=== PATIENT | female | born 1930 | race African-American/Black ===

== ENCOUNTER 2016-08-14 22:19 | Inpatient (IN) | payer OTHER ==
[~2016-08-14] VITALS: Ht 180.3 cm; Wt 82.2 kg
--- NOTE | ~2016-08-14 | EKG ---
[address] [place] [employer] [address] ELECTROCARDIOGRAM REPORT Name: EDUARDO CAVAZOS Room #: 313-P ADM IN M.R.#: [id number] Admission: 08/15/16 Attend Phys: Akin Dacosta MD Discharge: Date of : 30 Report #: [id number] THIS REPORT FOR: //name// [facility] ED Test Date: 2016-08-14 Test Time: 22:37:21 Pat Name: EDUARDO CAVAZOS Department: Room: [facility] Gender: F Prototyper: MZOOK : 1930 Requested By: Unique Song Order Number: [id number] MD: Kev Montoya Measurements Intervals [place] Rate: 107 P: 49 [place]: 169 QRS: 24 QRSD: 91 T: -1 QT: 359 QTc: 479 Interpretive Statements Sinus tachycardia frequent premature ventricular and supraventricular complexes Probable left atrial enlargement Nonspecific ST segment abnormality No previous ECG available for comparison Electronically Signed On 08-15-2016 7:43:00 LABEL SEWER by Kev Montoya [email or web address] <ELECTRONICALLY SIGNED> By: Kev Montoya MD, [facility] 08/15/16 0743 36 36 Kev Montoya MD, FACC /EPI
--- NOTE | ~2016-08-14 | EKG ---
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: KLAUS : 1930 Requested By: Ever Clinton Order Number: [id number] MD: Kev Montoya Measurements Intervals [place] Rate: 149 P: 55 [place]: 65 QRS: 33 QRSD: 71 T: -86 QT: 272 QTc: 428 Interpretive Statements Supraventricular tachycardia with frequent atrial premature complexes Probable anterior infarct, age indeterminate Artifact in lead(s) II,III,aVR,aVL,aVF,V2 N[address] and T-wave abnormality No previous ECG available for comparison Electronically Signed On 08-15-2016 7:44:34 BENCH ASSEMBLER by Kev Montoya [email or web address] <ELECTRONICALLY SIGNED> By: Kev Montoya MD, FACC 08/15/16 0744 0154 0154 Kev Montoya MD, [facility] /EPI
--- NOTE | ~2016-08-14 | 2DMMODE ---
[facility] [place] [address] 2 D/M-MODE ECHOCARDIOGRAM Name: EDUARDO CAVAZOS Room #: 313-P [facility]#: [id number] Admission: 08/15/16 Attend Phys: Anson Stein MD Discharge: Date of : 30 Date of Service: 08/15/16811 Report #: [id number] THIS REPORT FOR: //name// Transthoracic Echocardiography Ordering physician: Nicole Alvarado Referring physician: Aamir Harmon Theresa L. Dining Room Manager: Letty Villarreal Indications/History: New onset Afib. Hx: HTN, HLP BP: 164 / HR: 117bpm Height: 71in Weight: 175.6lb 51 Study data: M-mode, complete 2D, complete spectral Doppler, and color Doppler. Location: Bedside. Routine. Image quality was adequate. The study was technically limited due to poor patient compliance, restricted patient mobility and arrhythmia. 2D measurements Normal Normal LVID ED 42.7mm 36-57 IVS ED 12.9mm 6-11 LVID ES 28.2mm 23-40 LVPW ED 10.9mm 6-11 LA volume 26ml/m2 16-28 AoRoot diam 30mm 21-37 index ED LVOT diameter 20mm 18-23 Findings: Left ventricle: The cavity size was normal. Wall thickness was increased in a pattern of mild LVH. Systolic function was normal. The estimated ejection fraction was in the range of 60% to 65%. Wall motion was normal. Right ventricle: The cavity size was normal. Systolic function was normal. Right atrium: The atrium was normal in size. Left atrium: The atrium was mildly dilated. Volume index: 26ml/m2 (S). Aortic valve: Moderately calcified leaflets. 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 Difficult [facility] [place] [address] [place] [address] 2 D/M-MODE ECHOCARDIOGRAM Name: EDUARDO CAVAZOS Room #: 313-P [facility] IN [place]#: [id number] Admission: 08/15/16 Attend Phys: Anson Stein MD Discharge: Date of : 30 Date of Service: 08/15/16 0812 Report #: [id number] to assess due to arrhythmia. Mean peak velocity of 3.4m/s with an average peak gradient of 50mmHg and an average mean of 37mmHg. No regurgitation. Mitral valve: Mildly calcified annulus. Moderately calcified leaflets . Doppler: There was no evidence for stenosis. No regurgitation. Peak E-wave velocity: 111.1cm/s. Peak gradient: 4.9mm Hg (D). Peak A-wave velocity: 156.3cm/s. Tricuspid valve: Structurally normal valve. Doppler: There was no evidence for stenosis. Mild regurgitation. Regurgitant peak velocity: 309cm/s. Peak RV-RA gradient: 38mm Hg (S). Pulmonic valve: Poorly visualized. Doppler: There was no evidence for stenosis. Mild regurgitation. Pericardium: There was no pericardial effusion. Aorta: Aortic root: The aortic root was normal in size. Pulmonary artery: Systolic pressure was estimated to be 43mm Hg. Diastolic function: Doppler parameters are consistent with abnormal left ventricular relaxation (grade 1 diastolic dysfunction). Systemic veins: Inferior vena cava: The vessel was normal in size; the respirophasic diameter changes were in the normal range (= 50%). Conclusions 1. Left ventricle: Systolic function was normal. The estimated ejection fraction was in the range of 60% to 65%. Wall motion was normal. Doppler parameters are consistent with abnormal left ventricular relaxation (grade 1 diastolic dysfunction). 2. Aortic valve: Moderately calcified leaflets. 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 Difficult to assess due to arrhythmia. Mean peak velocity of 3.4m/s with an average peak gradient of 50mmHg and an average mean of 37mmHg. No regurgitation. 3. Mitral valve: Mildly calcified annulus. Moderately calcified leaflets . There was no evidence for stenosis. No regurgitation. [facility] [place] [address] [place] [address] 2 D/M-MODE ECHOCARDIOGRAM Name: EDUARDO CAVAZOS Room #: 313-P [facility] IN ..#: [id number] Admission: 08/15/16 Attend Phys: Anson Stein MD Discharge: Date of : 30 Date of Service: 08/15/16811 Report #: [id number] 4. Pericardium, extracardiac: There was no pericardial effusion. <ELECTRONICALLY SIGNED> By: Kev Montoya MD, [facility] 08/15/16908 1 8 Kev Montoya MD, [facility] /federica
[2016-08-14 22:20] VITALS: BP 149/65
[2016-08-14 22:43] LABS: HEMATOCRIT 40.3 % (37.0-47.0); HEMOGLOBIN 13.1 gm/dL (12.0-15.0); MCH 25.8 pg (26.0-34.0); MCHC 32.4 % (28.0-37.0); MCV 79.8 fL (80.0-100.0); PLATELET COUNT 234 thou/uL (150-400); RBC 5.05 mil/uL (4.20-5.00); RDW 15.7 % (10.5-14.5); WBC 16.9 thou/uL (4.0-11.0)
[2016-08-14 22:46] LABS: MANUAL DIFF YES
[2016-08-14 22:49] LABS: ANION GAP 10 mmol/L (7-16); BUN 47 mg/dL (7-18); CALCIUM 9.1 mg/dL (8.5-10.1); CHLORIDE 100 mmol/L (98-107); CO2 28 mmol/L (21-32); CREATININE 2.5 mg/dL (0.6-1.3); GLUCOSE 118 mg/dL (70-99); POTASSIUM 4.3 mmol/L (3.5-5.1); SODIUM 138 mmol/L (136-145)
[2016-08-14] MEDS ORDERED: NORVASC2.5 MG PO (22:59)
[2016-08-14] MEDS ORDERED: NORVASC5 MG PO (23:00)
[2016-08-14] MEDS ORDERED: ASPIR 8181 MG PO (23:01)
[2016-08-14] MEDS ORDERED: LIPITOR 20 MG T20 M1 PO (23:02)
[2016-08-14 23:03] LABS: ALKALINE PHOSPHATASE 70 U/L (46-116); NT-PRO BRAIN NAT PEPTIDE 5327 pg/mL (<300); SGOT 17 U/L (15-37); SGPT 15 U/L (30-65); TOTAL BILIRUBIN 0.5 mg/dL (<0.1-1.0); TOTAL PROTEIN 7.1 g/dL (6.4-8.2); TROPONIN-I < 0.04 ng/mL (<0.04-0.07)
[2016-08-14] MEDS ORDERED: CLONIDINE HCL0.3 M3 PO (23:03)
[2016-08-14] MEDS ORDERED: ARICEPT 5 MG TAB5 MG PO (23:03)
[2016-08-14] MEDS ORDERED: FUROSEMIDE 40 M40 M1 PO (23:04)
[2016-08-14] MEDS ORDERED: COZAAR 50 MG TA50 M2 PO (23:04)
[2016-08-14] MEDS ORDERED: POTASSIUM CHLO20 ME2 PO (23:05)
[2016-08-14] MEDS ORDERED: NAMENDA 10 MG T10 MG PO (23:05)
[2016-08-14] MEDS ORDERED: MAPAP325 MG PO (23:06)
[2016-08-14] MEDS ORDERED: TRAZODONE HCL50 MG PO (23:07)
[2016-08-14 23:12] LABS: URINE BLOOD NEGATIVE (Negative); URINE COLOR YELLOW; URINE GLUCOSE-RANDOM* NEGATIVE (Negative); URINE KETONES TRACE (Negative); URINE NITRITE NEGATIVE (Negative); URINE PROTEIN (DIPSTICK) TRACE (Negative); URINE UROBILINOGEN 0.2 E.U./dl (0.2-1.0)
[2016-08-14 23:15] LABS: ICTOTEST (BILI CONFIRMATORY) Negative (Negative); URINE BILIRUBIN NEGATIVE (Negative)
[2016-08-14 23:23] LABS: BACTERIA >30 Many /HPF (None Seen); CASTS None Seen /LPF (None Seen); CRYSTALS None Seen /LPF (None Seen); SQUAMOUS None Seen /LPF (0-3); URINE RBC None Seen /HPF (0-2); URINE WBC 6-15 Few /HPF (0-5)
[2016-08-14 23:24] LABS: HYALINE CASTS 0-3 Few /LPF (None Seen)
[2016-08-14 23:30] LABS: ANISOCYTOSIS 1+; POLYCHROMASIA 1+; TOTAL CELL COUNT 100
[2016-08-14 23:31] LABS: LARGE PLATELETS FEW
[2016-08-15 02:20] VITALS: BP 153/122; BP 159/58
[2016-08-15 04:11] VITALS: BP 155/84
[2016-08-15 06:34] LABS: HEMATOCRIT 42.8 % (37.0-47.0); HEMOGLOBIN 13.3 gm/dL (12.0-15.0); MCH 25.6 pg (26.0-34.0); MCHC 31.1 % (28.0-37.0); MCV 82.1 fL (80.0-100.0); RBC 5.22 mil/uL (4.20-5.00); RDW 15.8 % (10.5-14.5); WBC 25.5 thou/uL (4.0-11.0)
[2016-08-15 06:56] VITALS: BP 164/51
[2016-08-15 07:01] LABS: ALBUMIN 2.7 g/dL (3.4-5.0); CALCIUM 8.6 mg/dL (8.5-10.1); CREATININE 1.8 mg/dL (0.6-1.3); POTASSIUM 3.9 mmol/L (3.5-5.1); TOTAL BILIRUBIN 0.5 mg/dL (<0.1-1.0); TOTAL PROTEIN 6.1 g/dL (6.4-8.2)
[2016-08-15 08:40] VITALS: BP 174/53
[2016-08-15 08:40] LABS: TROPONIN-I 0.05 ng/mL (<0.04-0.07)
[2016-08-15 12:55] VITALS: BP 151/69
[2016-08-15 17:15] LABS: TSH 0.63 uIU/mL (0.450-4.500)
[2016-08-15 20:00] VITALS: BP 159/92
[2016-08-16 04:00] VITALS: BP 150/107
[2016-08-16 07:29] VITALS: BP 159/67
[2016-08-16 07:53] VITALS: BP 162/68
[2016-08-16 10:22] LABS: HEMATOCRIT 39.2 % (37.0-47.0); HEMOGLOBIN 12.5 gm/dL (12.0-15.0); MCH 25.7 pg (26.0-34.0); MCHC 31.9 % (28.0-37.0); MCV 80.5 fL (80.0-100.0); PLATELET COUNT 266 thou/uL (150-400); RBC 4.87 mil/uL (4.20-5.00); RDW 15.9 % (10.5-14.5); WBC 22.4 thou/uL (4.0-11.0)
[2016-08-16 10:31] LABS: MANUAL DIFF YES
[2016-08-16 10:33] LABS: CALCIUM 8.8 mg/dL (8.5-10.1); CREATININE 1.3 mg/dL (0.6-1.3); POTASSIUM 3.9 mmol/L (3.5-5.1)
[2016-08-16 10:48] LABS: ABSOLUTE NEUTROPHILS 18.6 thou/uL (1.4-8.2); PLATELET ESTIMATE NORMAL; TOTAL CELL COUNT 100
[2016-08-16 11:31] VITALS: BP 157/73
[2016-08-16 21:08] VITALS: BP 162/117
[2016-08-16 23:52] VITALS: BP 167/82
[2016-08-17 03:50] VITALS: BP 186/74
[2016-08-17 07:23] VITALS: BP 166/86
[2016-08-17 10:54] VITALS: BP 167/67
[2016-08-17 12:24] LABS: CALCIUM 8.4 mg/dL (8.5-10.1); POTASSIUM 3.4 mmol/L (3.5-5.1)
[2016-08-17 13:19] LABS: HEMATOCRIT 39.3 % (37.0-47.0); HEMOGLOBIN 12.6 gm/dL (12.0-15.0); MCH 25.4 pg (26.0-34.0); MCV 79.5 fL (80.0-100.0); PLATELET COUNT 277 thou/uL (150-400); RBC 4.95 mil/uL (4.20-5.00); RDW 15.9 % (10.5-14.5); WBC 19.6 thou/uL (4.0-11.0)
[2016-08-17 13:20] LABS: MANUAL DIFF YES
[2016-08-17 14:05] LABS: ABSOLUTE NEUTROPHILS 17.2 thou/uL (1.4-8.2); TOTAL CELL COUNT 100
[2016-08-17 14:06] LABS: ANISOCYTOSIS 1+; POIKILOCYTOSIS SLIGHT; POLYCHROMASIA OCCASIONAL
[2016-08-17 15:30] VITALS: BP 166/78; BP 196/85
[2016-08-17 21:00] VITALS: BP 139/103
[2016-08-18 00:20] VITALS: BP 180/96
[2016-08-18 04:40] VITALS: BP 179/94
[2016-08-18 08:00] VITALS: BP 175/62
[2016-08-18 11:38] VITALS: BP 173/77
[2016-08-18 15:03] VITALS: BP 101/56
[2016-08-18 19:47] VITALS: BP 137/72
[2016-08-19 04:02] VITALS: BP 114/58
[2016-08-19 05:28] LABS: HEMATOCRIT 36.7 % (37.0-47.0); HEMOGLOBIN 11.7 gm/dL (12.0-15.0); MCH 26.1 pg (26.0-34.0); MCHC 32.1 % (28.0-37.0); MCV 81.6 fL (80.0-100.0); RBC 4.49 mil/uL (4.20-5.00); RDW 15.6 % (10.5-14.5); WBC 9.3 thou/uL (4.0-11.0)
[2016-08-19 05:38] LABS: CALCIUM 8.4 mg/dL (8.5-10.1); CREATININE 1.6 mg/dL (0.6-1.3)
[2016-08-19 05:51] LABS: POTASSIUM 2.9 mmol/L (3.5-5.1)
[2016-08-19 08:00] VITALS: BP 115/53
[2016-08-19 12:00] VITALS: BP 111/41
[2016-08-19 16:00] VITALS: BP 133/48
[2016-08-19 20:20] VITALS: BP 133/50
[2016-08-20 03:40] VITALS: BP 134/72
[2016-08-20] MEDS ORDERED: KEFLEX500 MG PO (10:31)
[2016-08-20 10:48] VITALS: BP 119/51
[2016-08-20 10:57] LABS: CALCIUM 8.2 mg/dL (8.5-10.1); CREATININE 1.3 mg/dL (0.6-1.3); POTASSIUM 3.8 mmol/L (3.5-5.1)
[2016-08-20 13:00] VITALS: BP 140/56
[2016-08-20] MEDS ORDERED: CARDIZEM CD180 MG PO (15:03)
== END 2016-08-20 16:58 | DRG 682 ==
LOC: ER 22:19 → EROBS 08-15 01:49 → 3N 08-15 01:49
PROVIDERS: Family Medicine; Hospitalist; Nurse Practitioner; Nurse Practitioner Family
DX: I12.9 Hypertensive chronic kidney disease with stage 1 through stage 4 chronic kidney disease, or unspecified chronic kidney disease (principal); N17.0 Acute kidney failure with tubular necrosis; A04.7 Enterocolitis due to Clostridium difficile; N39.0 Urinary tract infection, site not specified; E86.0 Dehydration; E78.5 Hyperlipidemia, unspecified; N18.3 Chronic kidney disease, stage 3 (moderate); I35.0 Nonrheumatic aortic (valve) stenosis; I48.91 Unspecified atrial fibrillation; F03.90 Unspecified dementia, unspecified severity, without behavioral disturbance, psychotic disturbance, mood disturbance, and anxiety; Z91.81 History of falling; Z79.899 Other long term (current) drug therapy; Z79.82 Long term (current) use of aspirin; Z88.8 Allergy status to other drugs, medicaments and biological substances; Z88.6 Allergy status to analgesic agent; Z88.2 Allergy status to sulfonamides; Z91.041 Radiographic dye allergy status
CPT/HCPCS: 10096

== ENCOUNTER 2016-09-09 13:29 | Inpatient (IN) | payer OTHER ==
[~2016-09-09] VITALS: Ht 180.3 cm; Wt 83.9 kg
--- NOTE | ~2016-09-09 | S ---
[facility] [place] [place] [address] SURGICAL PATH RPT PROCEDURE Name: TRACY BENITEZ Room #: 428-P ADM IN M.R.#: [id number] Admission: 09/09/16 Date of : 30 Discharge: Report #: [id number] Path Case #: [id number] PATHOLOGY REPORT COLLECTION DATE: 09/26/2016 RECEIVED DATE: 09/26/2016 SUBMITTING PHYS: Dr. Hemal Burr OTHER PHYS: Dr. Teo Harmon SPECIMEN(S) RECEIVED: A.Colon mass - ascending colon B.L colon and rectum * * * * * * * * * * * * FINAL DIAGNOSIS: A. "Colon mass-ascending colon," biopsy: - Acute and chronic inflammation, ulceration, and granulation tissue. (see comment) B. "L colon and rectum," biopsy: - Colonic mucosa with chronic active colitis, ulceration, and reactive, hyperplastic, and regenerative changes; no dysplasia seen. COMMENT: Within specimen A, sections show fragments of connective tissue with acute and chronic inflammation, ulceration, and granulation tissue. Only a scant amount of viable glandular epithelium with reactive and regenerative changes is noted. Rare polarizable material is also seen. Properly controlled immunohistochemical stains are performed. (Block A1) AE1/AE3: scant residual epithelium CD117: stains rare scattered cells (likely mast cells) CD20: stains rare scattered cells PAX-5: stains rare scattered cells CD3: highlights occasional admixed T-cells CD5: stains occasional admixed T-cells, no B-cell co-expression CD10: highlights the granulocytes and stromal cells BCL-6: stains scattered cells BCL-2: stains scattered cells CD23: essentially non-reactive Cyclin D-1: lacks diffuse nuclear staining MUM-1: numerous subepithelial smaller cells (likely plasma cells) Ki-67: mildly increased scattered cells Overall, the findings suggest an inflammatory process. No convincing [facility] [address] [place] [address] SURGICAL PATH RPT PROCEDURE Name: TRACY BENITEZ Room #: 428-P ADM IN M.R.#: [id number] Admission: 09/09/16 Date of : 30 Discharge: Report #: [id number] Path Case #: [id number] epithelial dysplasia is identified and no malignancy is seen. Clinical and endoscopic correlation is required. Of note, this is a small portion of a larger lesion and may not be entirely counter sales representative. Specimen A is co-reviewed with Dr. Jovan Michaels. (CLW:; d/t: 10/01/16) PATHOLOGIST: Michelle Banegas M.D. REPORT ELECTRONICALLY SIGNED BY: Michelle Banegas M.D. DATE/TIME: 10/01/2016 21:26 * * * * * * * * * * * * GROSS PATHOLOGY: A. Received in formalin labeled "Tracy Benitez, ascending colon mass," are three segments of recinos soft tissue measuring 0.7 x 0.7 x 0.1 cm in aggregate dimensions and ranging from 0.3 to 0.4 cm in maximum dimension. The specimen is submitted entirely in cassette A1. B. Received in formalin labeled "Trayc Benitez, biopsy L colon and rectum, history of C. difficile," are nine segments of recions soft tissue measuring 1.4 x 1.3 x 0.2 cm in aggregate dimensions and ranging from 0.3 to 0.6 cm in maximum dimension. The specimen is submitted entirely in cassette B1. (CAA; 09/26/2016) CLINICAL HISTORY: Diarrhea, C. difficile INITIAL CPT CODE(S): A; 72452, 41836, 93480, 08006, 65735, 41192, 29867, 95868, 51322, 56750, 18330, 72187, 65369, 59146 B; 14856 Professional services performed by [employer] at [facility] [address] [place] [address] Technical services performed by [employer] at [address] [place] [address], [address], [place] [address]. [facility] [address] [place] [address] PHONE: [phone] DIRECTOR: Zia Rodriguez M.D. * * * END OF REPORT * * *
--- NOTE | ~2016-09-09 | P ---
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 Currently, there are considerations for fecal transplant for this patient and further evaluation is requested. PREOPERATIVE DIAGNOSIS: Clostridium difficile with recurrent diarrhea. POSTOPERATIVE DIAGNOSES: 1. Diffuse colitis, appears to be healing, nonspecific in appearance. 2. Sessile mass lesion, distal ascending colon. MEDICATIONS: Deep sedation with propofol per anesthesia. SPECIMEN: 1. Biopsies of sessile lesion, distal ascending colon. 2. Random biopsies of the left colon and rectum. ESTIMATED BLOOD LOSS: 5 mL. PROCEDURE: Colonoscopy to cecum with biopsy. FINDINGS: Prior to sedation, procedure was discussed with the patient. She indicates she understands and desire that we proceed. DESCRIPTION OF PROCEDURE: With the patient in left lateral decubitus position, digital examination was completed which revealed no abnormalities. Subsequently, the [employer] video colonoscope was introduced into the rectum, advanced under direct vision. Our initial intention was to complete a flexible sigmoidoscopy. However, it is noted on CT, there is evidence of a lipomatous lesion and possible intussusception in the proximal colon. The scope was advancing easily. All of the prep was limited, reasonable visibility obtained and without any difficulty, we were able to advance the scope actually all the way to the cecum. Upon slow withdrawal of the scope, the mucosa was inspected. Again, she did not have a colonoscopy prep and there were pools of liquidy stool throughout the colon. However, visibility was good enough to see that there was a mass lesion of at least 4 cm in the distal descending colon. It was bulging in the lumen and probably obscured about one-third of the lumen. This lesion had colonic mucosa over it. The mucosa over the lesion appeared jessica of the colon. It was palpated with a biopsy forceps and it was soft and friable. On CT, it was suggested this is a lipoma and endoscopically that would be the same impression. Biopsies were obtained; however, we may not be deep enough to [facility] [address] [place] [address] PROCEDURE REPORT Name: EDUARDO CAVAZOS Room #: 428-P DIS IN M.R.#: [id number] Admission: 09/09/16 Attend Phys: Teo Pena Discharge: 10/09/16 Date of : 30 Report #: [id number] give a complete diagnosis. As we withdrew the scope, it was noted that the mucosa throughout the entire colon was erythematous as well as could be seen within the limitations of prep. It was edematous as well. Extensive or deep ulcerations were not seen. It was friable. It had appearance of a healing colitis. Typical pseudomembranes were not seen. Multiple biopsies obtained in the left colon and the rectum. The scope was withdrawn in the rectum. Upon retroflexion, an ulcer raising from the anal canal was seen. This may be as a result of her fecal management system. The ulcer seen in the anal canal. It was about 1.5 cm as well as could be visualized. It was not bleeding. It had a benign appearance. Scope was withdrawn. The patient tolerated the procedure well. DISPOSITION: Unfortunately, the patient with recurrent significant C. diff colitis, which has been documented and treated by Dr. Ever Harris. Endoscopically, I did not see pseudomembranes, however, she has been treated for C. difficile colitis and findings are consistent with resolving colitis, but likely secondary to C. diff. We will follow up on biopsies obtained today. <ELECTRONICALLY SIGNED> By: Hemal Burr MD 10/10/16 0743 1337 1904 Hemal Burr MD /nt
--- NOTE | ~2016-09-09 | P ---
[facility] [place] [address] PROCEDURE REPORT Name: EDUARDO CAVAZOS Room #: 428-P [facility] IN M.R.#: [id number] Admission: 09/09/16 Attend Phys: Teo Pena Discharge: Date of : 30 Report #: [id number] THIS REPORT FOR: //name// Michael Cosby MD COPIES TO: , PROCEDURE PERFORMED: Upper Endoscopy DATE OF PROCEDURE: 10/07/2016 DICTATED BY: Michael Cosby MD REFERRING PHYSICIAN: ER PROVIDER USE ONLY SCOPE(S) USED: F Sn: 054- LOANER MEDICATIONS GIVEN: (See Anesthesiologist Report) INDICATIONS: Endoscopic placement of PEG tube EXTENT OF EXAMINATION: Second part of the duodenum DESCRIPTION OF PROCEDURE: Informed consent was obtained with the benefits, risks, and alternatives to upper GI endoscopy explained, including the risk of perforation, and the patient agreed to proceed. See anesthesiologist report for patients ASA Classification. Patient re-Examined; and no interval changes noted from preoperative History and Physical. No contraindications were noted on physical exam. After being placed on the table, patient identification was verified prior to the procedure. Anesthesia administered by Dr. Silverman. (See Anesthesiologist report) Assessment of sedation: Complications- None. Cardiovascular- Stable. Orientation- Sedated. The procedure was performed with the patient in the left lateral decubitus position. The instrument was inserted to the second part of the duodenum. Estimated blood loss for the procedure was 0 ml. The patient tolerated the procedure well. There were no complications. The heart rate was normal. The oxygen saturation and skin color were normal. Upon discharge from the endoscopy area, the patient will be recovered per established procedures and protocols. The esophagus was examined and no abnormalities were seen. The stomach was examined and no abnormalities were seen. The duodenum was examined and no abnormalities were seen. THERAPEUTIC PROCEDURE(S) PERFORMED: Feeding Tube Device: PEG, Location: body, Size: 20FR, Result: Success [facility] [address] [place] [address] PROCEDURE REPORT Name: EDUARDO CAVAZOS Room #: 428-P [facility] IN ..#: [id number] Admission: 09/09/16 Attend Phys: Teo Pena Discharge: Date of : 30 Report #: [id number] DISCHARGE INSTRUCTIONS: The patient was instructed to return to the hospital [facility] for ongoing care. OK to use PEG tube now for water and medications. Resume tube feeds in six hours. Consider adding an abdominal binder to prevent dislodging tube. <ELECTRONICALLY SIGNED> By: Michael Cosby MD 10/07/16 1645 1 1 Michael Cosby MD /si
--- NOTE | ~2016-09-09 | HC ---
[facility] [place] [place] [address] CONSULTATION Name: EDUARDO CAVAZOS Room #: 428-[facility] IN M.R.#: [id number] Admission: 09/09/16 Attend Phys: Teo Pena Discharge: Date of : 30 Report #: [id number] THIS REPORT FOR: //name// CC: Teo Harmon INFECTIOUS DISEASE CONSULTATION REASON FOR CONSULTATION: I was asked to evaluate concerning C. difficile colitis. HISTORY OF PRESENT ILLNESS: The patient is an 86-year-old retirement resident with advanced dementia who was hospitalized with C. difficile colitis. Her initial white count was over 30,000. She has had large volume diarrhea. Found also to have urinary tract infection, was placed on vancomycin and ceftriaxone. Ceftriaxone was discontinued today. Although her stools have lessened, her white count is down to 18,000. The patient was unable to give any further details. She was lethargic. She had mild diffuse abdominal tenderness. ALLERGIES: ROXIE INHIBITORS, MORPHINE, RED DYE, SULFA, DYAZIDE, ANGIOTENSIN RECEPTOR BLOCKERS, LOOP DIURETICS. PAST MEDICAL HISTORY: Dementia, hypertension, hyperlipidemia, recently hospitalized with urinary tract infection, atrial fibrillation, rapid ventricular response, having been discharged on 08/20/2016. FAMILY HISTORY: Noncontributory. SOCIAL HISTORY: Not available. REVIEW OF SYSTEMS: The patient has had no cough or sputum production. Unable to give any further details. PHYSICAL EXAMINATION: VITAL SIGNS: Afebrile and hemodynamically stable. GENERAL: Last stool was soft formed. HEENT: Unremarkable. She was lethargic. CHEST: Clear. HEART: Regular. ABDOMEN: Soft with diffuse tenderness. No guarding or rebound. EXTREMITIES: Unremarkable. LABORATORY STUDIES: Sodium 135, potassium 5, creatinine 1, bicarbonate at 24, Hemoglobin 11.9, white count 18.5, and platelet count 197,000. From September 10, the stool was positive for C. difficile by PCR. Her urinalysis on admission showed few wbcs, moderate bacteria and yeast. CT scan showed diffuse colonic wall thickening with no perforation. She had gallbladder distention. [address] [address] CONSULTATION Name: EDUARDO CAVAZOS Room #: 428-P ADM IN M.R.#: [id number] Admission: 09/09/16 Attend Phys: Teo Medina Becky Discharge: Date of : 30 Report #: [id number] IMPRESSION: An 86-year-old with Clostridium difficile colitis, which is slow to improve. Her stool volume, however, has slowed down and her white count has begun to improve. This should continue improvement as she comes off her other systemic antibiotics. PLAN: I would recommend continuing vancomycin enterally and metronidazole intravenously. We will follow up with a CBC differential along with chemistry and KUB. We will determine her length of therapy following these further studies. At this point in time, does not look like we are going to need fecal transplant, but this still remains a possibility. <ELECTRONICALLY SIGNED> By: Ever Harris MD 09/18/16 0934 1727 2049 Ever Harris MD /nt
--- NOTE | ~2016-09-09 | EKG ---
[place] [address] [place] [address] ELECTROCARDIOGRAM REPORT Name: EDUARDO CAVAZOS Room #: 428-P ADM IN M.R.#: [id number] Admission: 09/09/16 Attend Phys: Teo Pena Discharge: Date of : 30 Report #: [id number] THIS REPORT FOR: //name// [facility] ED Test Date: 2016-09-09 Test Time: 13:59:59 Pat Name: EDUARDO CAVAZOS Department: Room: 428 Gender: F Waste Recycler: Zack YANG : 1930 Requested By: Ever Clinton Order Number: [id number] MD: Kev Montoya Measurements Intervals [place] Rate: 85 P: 70 GA: 167 QRS: 12 QRSD: 104 T: 192 QT: 340 QTc: 405 Interpretive Statements Baseline artifact obscurs interpretation Possibe sinus with APC's Nonspecific ST and T wave abnormality No previous available for comparison Electronically Signed On 09-10-2016 8:59:35 BUSINESS OPERATIONS SPECIALIST by Kev Montoya [email or web address] <ELECTRONICALLY SIGNED> By: Kev Montoya MD, [facility] 09/10/16 0859 1359 1359 Kev Montoya MD, FACC /EPI
[~2016-09-09 13:29] MED LIST: ARICEPT 5 MG TAB5 MG PO; ASPIR 8181 MG PO; CARDIZEM CD180 MG PO; CLONIDINE HCL0.3 M3 PO; COZAAR 50 MG TA50 M2 PO; FUROSEMIDE 40 M40 M1 PO; KEFLEX500 MG PO; LIPITOR 20 MG T20 M1 PO; MAPAP325 MG PO; NAMENDA 10 MG T10 MG PO; NORVASC2.5 MG PO; NORVASC5 MG PO; POTASSIUM CHLO20 ME2 PO; TRAZODONE HCL50 MG PO
[2016-09-09 14:05] LABS: URINE BILIRUBIN NEGATIVE (Negative); URINE BLOOD TRACE (Negative); URINE COLOR YELLOW; URINE GLUCOSE-RANDOM* NEGATIVE (Negative); URINE KETONES NEGATIVE (Negative); URINE NITRITE NEGATIVE (Negative); URINE PROTEIN (DIPSTICK) TRACE (Negative); URINE SPECIFIC GRAVITY 1.015 (1.003-1.035); URINE UROBILINOGEN 0.2 E.U./dl (0.2-1.0)
[2016-09-09 14:25] LABS: CASTS None Seen /LPF (None Seen); SQUAMOUS 4-10 Moderate /LPF (0-3); URINE RBC 0-2 Rare /HPF (0-2); URINE WBC 6-15 Few /HPF (0-5)
[2016-09-09 14:26] LABS: CRYSTALS None Seen /LPF (None Seen); YEAST Present (None Seen)
[2016-09-09 14:37] LABS: AMP/METHAMP Negative (Negative); BARBITURATES Negative (Negative); BENZODIAZEPINES Negative (Negative); COCAINE Negative (Negative); METHADONE Negative (Negative); OPIATES Negative (Negative); PCP Negative (Negative); THC Negative (Negative)
[2016-09-09 15:04] LABS: HEMATOCRIT 39.4 % (37.0-47.0); HEMOGLOBIN 12.4 gm/dL (12.0-15.0); MCH 25.5 pg (26.0-34.0); MCHC 31.6 g/dL (28.0-37.0); MCV 80.7 fL (80.0-100.0); PLATELET COUNT 263 thou/uL (150-400); RBC 4.88 mil/uL (4.20-5.00); RDW 16.5 % (10.5-14.5); WBC 15.9 thou/uL (4.0-11.0)
[2016-09-09 15:06] LABS: MANUAL DIFF YES
[2016-09-09 15:11] LABS: ANION GAP 10 mmol/L (7-16); BUN 58 mg/dL (7-18); CHLORIDE 104 mmol/L (98-107); CO2 29 mmol/L (21-32); CREATININE 3.6 mg/dL (0.6-1.3); GLUCOSE 125 mg/dL (70-99); POTASSIUM 3.7 mmol/L (3.5-5.1); SODIUM 143 mmol/L (136-145)
[2016-09-09 15:19] LABS: ALBUMIN 2.1 g/dL (3.4-5.0); ALKALINE PHOSPHATASE 92 U/L (46-116); MAGNESIUM 2.4 mg/dL (1.8-2.4); SGOT 15 U/L (15-37); SGPT 12 U/L (30-65); TOTAL BILIRUBIN 0.4 mg/dL (<0.1-1.0); TOTAL PROTEIN 6.3 g/dL (6.4-8.2); TROPONIN-I < 0.04 ng/mL (<0.04-0.07)
[2016-09-09 15:37] LABS: ABSOLUTE NEUTROPHILS 12.1 thou/uL (1.4-8.2); METAMYELOCYTES 2 %; MYELOCYTES 1 %; TOTAL CELL COUNT 100
[2016-09-09 15:38] LABS: ANISOCYTOSIS 1+
[2016-09-10 05:46] LABS: HEMATOCRIT 38.5 % (37.0-47.0); HEMOGLOBIN 11.9 gm/dL (12.0-15.0); MCH 25.3 pg (26.0-34.0); MCHC 30.9 g/dL (28.0-37.0); MCV 81.9 fL (80.0-100.0); PLATELET COUNT 233 thou/uL (150-400); RDW 16.5 % (10.5-14.5); WBC 15.9 thou/uL (4.0-11.0)
[2016-09-10 05:55] LABS: MANUAL DIFF YES
[2016-09-10 05:56] LABS: CALCIUM 8.5 mg/dL (8.5-10.1); CREATININE 2.9 mg/dL (0.6-1.3); POTASSIUM 3.3 mmol/L (3.5-5.1)
[2016-09-10 06:02] LABS: ALBUMIN 1.8 g/dL (3.4-5.0); MAGNESIUM 2.3 mg/dL (1.8-2.4); TOTAL BILIRUBIN 0.2 mg/dL (<0.1-1.0); TOTAL PROTEIN 5.7 g/dL (6.4-8.2)
[2016-09-10 08:03] LABS: ABSOLUTE NEUTROPHILS 11.4 thou/uL (1.4-8.2); METAMYELOCYTES 1 %; NUCLEATED RBCS 1 /100WBC; TOTAL CELL COUNT 100
[2016-09-10 08:04] LABS: ANISOCYTOSIS 1+; OVALOCYTES FEW
[2016-09-12 04:35] LABS: HEMATOCRIT 37.1 % (37.0-47.0); HEMOGLOBIN 11.5 gm/dL (12.0-15.0); MCH 25.3 pg (26.0-34.0); MCV 81.6 fL (80.0-100.0); RBC 4.55 mil/uL (4.20-5.00)
[2016-09-12 04:45] LABS: WBC 34.3 thou/uL (4.0-11.0)
[2016-09-12 05:06] LABS: CALCIUM 7.9 mg/dL (8.5-10.1); CREATININE 2.4 mg/dL (0.6-1.3); POTASSIUM 3.9 mmol/L (3.5-5.1)
[2016-09-13 04:46] LABS: HEMATOCRIT 38.9 % (37.0-47.0); MCH 25.3 pg (26.0-34.0); MCHC 30.8 g/dL (28.0-37.0); MCV 82.1 fL (80.0-100.0); RBC 4.74 mil/uL (4.20-5.00)
[2016-09-13 05:04] LABS: CALCIUM 7.6 mg/dL (8.5-10.1); CREATININE 2.2 mg/dL (0.6-1.3); POTASSIUM 4.1 mmol/L (3.5-5.1)
[2016-09-14 05:54] LABS: HEMOGLOBIN 13.3 gm/dL (12.0-15.0); MCH 25.2 pg (26.0-34.0); MCHC 30.9 g/dL (28.0-37.0); MCV 81.6 fL (80.0-100.0); RBC 5.28 mil/uL (4.20-5.00); RDW 17.8 % (10.5-14.5); WBC 26.1 thou/uL (4.0-11.0)
[2016-09-14 06:00] LABS: CREATININE 1.6 mg/dL (0.6-1.3); POTASSIUM 4.9 mmol/L (3.5-5.1)
[2016-09-15 05:37] LABS: HEMATOCRIT 37.3 % (37.0-47.0); HEMOGLOBIN 11.7 gm/dL (12.0-15.0); MCH 25.2 pg (26.0-34.0); MCHC 31.4 g/dL (28.0-37.0); MCV 80.3 fL (80.0-100.0); RBC 4.65 mil/uL (4.20-5.00); RDW 16.8 % (10.5-14.5); WBC 23.4 thou/uL (4.0-11.0)
[2016-09-15 06:10] LABS: CREATININE 1.4 mg/dL (0.6-1.3); POTASSIUM 4.9 mmol/L (3.5-5.1)
[2016-09-16 03:26] LABS: CALCIUM 8.1 mg/dL (8.5-10.1); CREATININE 1.2 mg/dL (0.6-1.3); HEMATOCRIT 36.2 % (37.0-47.0); HEMOGLOBIN 11.5 gm/dL (12.0-15.0); MCH 25.4 pg (26.0-34.0); MCHC 31.9 g/dL (28.0-37.0); MCV 79.7 fL (80.0-100.0); POTASSIUM 5.2 mmol/L (3.5-5.1); RBC 4.54 mil/uL (4.20-5.00); RDW 16.7 % (10.5-14.5); WBC 19.9 thou/uL (4.0-11.0)
[2016-09-17 06:06] LABS: HEMATOCRIT 37.1 % (37.0-47.0); HEMOGLOBIN 11.9 gm/dL (12.0-15.0); MCH 25.4 pg (26.0-34.0); MCHC 31.9 g/dL (28.0-37.0); MCV 79.5 fL (80.0-100.0); RBC 4.67 mil/uL (4.20-5.00); RDW 16.7 % (10.5-14.5); WBC 18.5 thou/uL (4.0-11.0)
[2016-09-17 06:22] LABS: CALCIUM 8.3 mg/dL (8.5-10.1)
[2016-09-18 05:27] LABS: ABSOLUTE NEUTROPHILS 12.9 thou/uL (1.4-8.2); BASOPHILS 0.7 % (0.0-2.0); EOSINOPHILS 4.4 % (0.0-3.0); HEMOGLOBIN 10.1 gm/dL (12.0-15.0); MCH 25.7 pg (26.0-34.0); MCHC 32.5 g/dL (28.0-37.0); MCV 79.1 fL (80.0-100.0); MONOCYTES 7.2 % (1.0-8.0); PLATELET COUNT 211 thou/uL (150-400); POLYS 75.7 % (36.0-66.0); RBC 3.92 mil/uL (4.20-5.00); RDW 16.6 % (10.5-14.5)
[2016-09-18 05:29] LABS: MANUAL DIFF NO
[2016-09-18 05:43] LABS: ALBUMIN 1.7 g/dL (3.4-5.0); CALCIUM 8.1 mg/dL (8.5-10.1); POTASSIUM 5.1 mmol/L (3.5-5.1); TOTAL BILIRUBIN 0.2 mg/dL (<0.1-1.0); TOTAL PROTEIN 5.1 g/dL (6.4-8.2)
[2016-09-19 04:38] LABS: MCV 80.4 fL (80.0-100.0)
[2016-09-19 04:39] LABS: HEMATOCRIT 30.7 % (37.0-47.0); MCH 26.2 pg (26.0-34.0); MCHC 32.6 g/dL (28.0-37.0); RBC 3.82 mil/uL (4.20-5.00); RDW 16.3 % (10.5-14.5); WBC 10.1 thou/uL (4.0-11.0)
[2016-09-19 04:51] LABS: CALCIUM 7.8 mg/dL (8.5-10.1); CREATININE 0.9 mg/dL (0.6-1.3); POTASSIUM 4.3 mmol/L (3.5-5.1)
[2016-09-19 18:22] LABS: HEMATOCRIT 29.8 % (37.0-47.0); HEMOGLOBIN 9.7 gm/dL (12.0-15.0)
[2016-09-20 06:44] LABS: CALCIUM 8.1 mg/dL (8.5-10.1); CREATININE 1.1 mg/dL (0.6-1.3); POTASSIUM 4.2 mmol/L (3.5-5.1)
[2016-09-20 06:56] LABS: HEMATOCRIT 28.9 % (37.0-47.0); HEMOGLOBIN 9.4 gm/dL (12.0-15.0); MCH 26.3 pg (26.0-34.0); MCHC 32.7 g/dL (28.0-37.0); MCV 80.3 fL (80.0-100.0); RBC 3.6 mil/uL (4.20-5.00); RDW 16.8 % (10.5-14.5); WBC 9.2 thou/uL (4.0-11.0)
[2016-09-21 05:48] LABS: HEMATOCRIT 29.6 % (37.0-47.0); HEMOGLOBIN 9.6 gm/dL (12.0-15.0); MCH 25.9 pg (26.0-34.0); MCHC 32.4 g/dL (28.0-37.0); MCV 79.9 fL (80.0-100.0); RBC 3.71 mil/uL (4.20-5.00); RDW 17.1 % (10.5-14.5); WBC 7.8 thou/uL (4.0-11.0)
[2016-09-21 06:02] LABS: ALBUMIN 1.6 g/dL (3.4-5.0); CALCIUM 7.9 mg/dL (8.5-10.1); MAGNESIUM 1.9 mg/dL (1.8-2.4); POTASSIUM 3.9 mmol/L (3.5-5.1); TOTAL BILIRUBIN 0.1 mg/dL (<0.1-1.0); TOTAL PROTEIN 5.2 g/dL (6.4-8.2)
[2016-09-22 05:27] LABS: HEMATOCRIT 29.6 % (37.0-47.0); HEMOGLOBIN 9.5 gm/dL (12.0-15.0); MCH 26.2 pg (26.0-34.0); MCHC 32.1 g/dL (28.0-37.0); MCV 81.6 fL (80.0-100.0); RBC 3.63 mil/uL (4.20-5.00); RDW 16.8 % (10.5-14.5); WBC 8.6 thou/uL (4.0-11.0)
[2016-09-22 05:44] LABS: CALCIUM 7.9 mg/dL (8.5-10.1); CREATININE 0.9 mg/dL (0.6-1.3); MAGNESIUM 1.8 mg/dL (1.8-2.4); PHOSPHORUS 2.7 mg/dL (2.5-4.9); POTASSIUM 3.8 mmol/L (3.5-5.1)
[2016-09-23 04:45] LABS: HEMATOCRIT 27.8 % (37.0-47.0); HEMOGLOBIN 9.1 gm/dL (12.0-15.0); MCH 26.2 pg (26.0-34.0); MCHC 32.6 g/dL (28.0-37.0); MCV 80.3 fL (80.0-100.0); RBC 3.46 mil/uL (4.20-5.00); RDW 17.3 % (10.5-14.5); WBC 7.8 thou/uL (4.0-11.0)
[2016-09-23 04:51] LABS: CALCIUM 7.8 mg/dL (8.5-10.1); CREATININE 0.9 mg/dL (0.6-1.3)
[2016-09-23 04:57] LABS: APTT 68.1 Seconds (24.5-32.8); INR 1.1; PROTIME 11.3 Seconds (9.3-11.4)
[2016-09-24 06:30] LABS: HEMATOCRIT 27.2 % (37.0-47.0); HEMOGLOBIN 8.9 gm/dL (12.0-15.0); MCH 26.3 pg (26.0-34.0); MCHC 32.6 g/dL (28.0-37.0); MCV 80.6 fL (80.0-100.0); RBC 3.37 mil/uL (4.20-5.00); RDW 17.6 % (10.5-14.5); WBC 8.3 thou/uL (4.0-11.0)
[2016-09-24 06:47] LABS: CALCIUM 7.8 mg/dL (8.5-10.1); CREATININE 0.8 mg/dL (0.6-1.3); POTASSIUM 3.8 mmol/L (3.5-5.1)
[2016-09-25 05:10] LABS: ALBUMIN 1.6 g/dL (3.4-5.0); CALCIUM 8.2 mg/dL (8.5-10.1); CREATININE 0.7 mg/dL (0.6-1.3); POTASSIUM 3.8 mmol/L (3.5-5.1); TOTAL BILIRUBIN 0.1 mg/dL (<0.1-1.0); TOTAL PROTEIN 5.3 g/dL (6.4-8.2)
[2016-09-26 06:28] LABS: HEMATOCRIT 26.5 % (37.0-47.0); HEMOGLOBIN 8.4 gm/dL (12.0-15.0); MCH 28.2 pg (26.0-34.0); MCHC 31.6 g/dL (28.0-37.0); RBC 2.98 mil/uL (4.20-5.00); RDW 21.3 % (10.5-14.5); WBC 8.1 thou/uL (4.0-11.0)
[2016-09-26 07:26] LABS: CALCIUM 8.3 mg/dL (8.5-10.1); CREATININE 0.8 mg/dL (0.6-1.3); POTASSIUM 4.5 mmol/L (3.5-5.1)
[2016-09-28 04:32] LABS: HEMATOCRIT 23.8 % (37.0-47.0); MCH 26.9 pg (26.0-34.0); MCHC 33.7 g/dL (28.0-37.0); RBC 2.98 mil/uL (4.20-5.00); RDW 18.4 % (10.5-14.5); WBC 9.5 thou/uL (4.0-11.0)
[2016-09-28 04:36] LABS: MCV 79.8 fL (80.0-100.0)
[2016-09-28 04:45] LABS: CALCIUM 8.1 mg/dL (8.5-10.1); CREATININE 0.8 mg/dL (0.6-1.3); POTASSIUM 4.4 mmol/L (3.5-5.1)
[2016-09-29 05:12] LABS: ABSOLUTE NEUTROPHILS 4.6 thou/uL (1.4-8.2); BASOPHILS 2.9 % (0.0-2.0); EOSINOPHILS 1.1 % (0.0-3.0); HEMATOCRIT 23.6 % (37.0-47.0); HEMOGLOBIN 7.7 gm/dL (12.0-15.0); LYMPHOCYTES 27.9 % (24.0-44.0); MCH 26.3 pg (26.0-34.0); MCHC 32.8 g/dL (28.0-37.0); MCV 80.3 fL (80.0-100.0); MONOCYTES 10.1 % (1.0-8.0); PLATELET COUNT 207 thou/uL (150-400); RBC 2.94 mil/uL (4.20-5.00); WBC 7.9 thou/uL (4.0-11.0)
[2016-09-29 05:29] LABS: MANUAL DIFF NO
[2016-09-30 04:19] LABS: HEMATOCRIT 24.5 % (37.0-47.0); HEMOGLOBIN 8.1 gm/dL (12.0-15.0); MCH 26.8 pg (26.0-34.0); MCHC 33.2 g/dL (28.0-37.0); MCV 80.8 fL (80.0-100.0); RBC 3.03 mil/uL (4.20-5.00); WBC 8.1 thou/uL (4.0-11.0)
[2016-09-30 05:58] LABS: CALCIUM 8.2 mg/dL (8.5-10.1); CREATININE 0.9 mg/dL (0.6-1.3)
[2016-09-30 13:17] LABS: APTT 72.6 Seconds (24.5-32.8); INR 1.1
[2016-09-30 14:11] LABS: URINE BILIRUBIN NEGATIVE (Negative); URINE BLOOD NEGATIVE (Negative); URINE COLOR YELLOW; URINE GLUCOSE-RANDOM* NEGATIVE (Negative); URINE KETONES NEGATIVE (Negative); URINE LEUKOCYTES-REFLEX NEGATIVE (Negative); URINE PROTEIN (DIPSTICK) TRACE (Negative); URINE SPECIFIC GRAVITY 1.025 (1.003-1.035); URINE UROBILINOGEN 0.2 E.U./dl (0.2-1.0)
[2016-10-01 05:12] LABS: HEMOGLOBIN 8.3 gm/dL (12.0-15.0); MCH 26.8 pg (26.0-34.0); MCHC 33.3 g/dL (28.0-37.0); MCV 80.3 fL (80.0-100.0); RBC 3.12 mil/uL (4.20-5.00); RDW 18.9 % (10.5-14.5); WBC 7.8 thou/uL (4.0-11.0)
[2016-10-01 05:25] LABS: CREATININE 0.9 mg/dL (0.6-1.3); POTASSIUM 3.9 mmol/L (3.5-5.1)
[2016-10-02 05:29] LABS: HEMATOCRIT 25.3 % (37.0-47.0); HEMOGLOBIN 8.3 gm/dL (12.0-15.0); MCH 26.5 pg (26.0-34.0); MCHC 32.7 g/dL (28.0-37.0); MCV 81.2 fL (80.0-100.0); RBC 3.11 mil/uL (4.20-5.00); RDW 19.4 % (10.5-14.5); WBC 7.7 thou/uL (4.0-11.0)
[2016-10-02 05:40] LABS: CALCIUM 8.1 mg/dL (8.5-10.1); CREATININE 0.8 mg/dL (0.6-1.3); POTASSIUM 3.8 mmol/L (3.5-5.1)
[2016-10-04 01:38] LABS: CALCIUM 8.3 mg/dL (8.5-10.1); CREATININE 0.7 mg/dL (0.6-1.3)
[2016-10-04 01:46] LABS: HEMATOCRIT 25.8 % (37.0-47.0); HEMOGLOBIN 8.5 gm/dL (12.0-15.0); MCH 26.3 pg (26.0-34.0); MCHC 32.8 g/dL (28.0-37.0); MCV 80.1 fL (80.0-100.0); POTASSIUM 2.9 mmol/L (3.5-5.1); RBC 3.22 mil/uL (4.20-5.00); RDW 19.2 % (10.5-14.5); WBC 5.6 thou/uL (4.0-11.0)
[2016-10-04 07:58] LABS: INR 1.2
[2016-10-05 04:48] LABS: HEMATOCRIT 26.2 % (37.0-47.0); HEMOGLOBIN 8.5 gm/dL (12.0-15.0); MCH 26.3 pg (26.0-34.0); MCHC 32.4 g/dL (28.0-37.0); MCV 81.2 fL (80.0-100.0); RBC 3.23 mil/uL (4.20-5.00); RDW 18.9 % (10.5-14.5); WBC 5.8 thou/uL (4.0-11.0)
[2016-10-05 05:00] LABS: INR 1.1; PROTIME 11.7 Seconds (9.3-11.4)
[2016-10-05 05:01] LABS: APTT 32.5 Seconds (24.5-32.8)
[2016-10-05 05:06] LABS: CALCIUM 8.1 mg/dL (8.5-10.1); CREATININE 0.7 mg/dL (0.6-1.3)
[2016-10-05 05:19] LABS: POTASSIUM 2.9 mmol/L (3.5-5.1)
[2016-10-06 16:39] LABS: APTT 61.3 Seconds (24.5-32.8); INR 1.2
[2016-10-07 05:37] LABS: HEMATOCRIT 28.8 % (37.0-47.0); HEMOGLOBIN 9.3 gm/dL (12.0-15.0); MCH 26.4 pg (26.0-34.0); MCHC 32.3 g/dL (28.0-37.0); MCV 81.8 fL (80.0-100.0); RBC 3.53 mil/uL (4.20-5.00); RDW 19.8 % (10.5-14.5); WBC 9.2 thou/uL (4.0-11.0)
[2016-10-07 05:49] LABS: INR 1.1; PROTIME 11.9 Seconds (9.3-11.4)
[2016-10-07 05:55] LABS: CALCIUM 8.5 mg/dL (8.5-10.1); CREATININE 0.7 mg/dL (0.6-1.3); POTASSIUM 3.4 mmol/L (3.5-5.1)
[2016-10-08 05:30] LABS: HEMATOCRIT 26.1 % (37.0-47.0); HEMOGLOBIN 8.5 gm/dL (12.0-15.0); MCH 26.4 pg (26.0-34.0); MCHC 32.4 g/dL (28.0-37.0); MCV 81.3 fL (80.0-100.0); RBC 3.21 mil/uL (4.20-5.00); RDW 19.6 % (10.5-14.5)
[2016-10-08 05:41] LABS: INR 1.4
[2016-10-08 05:49] LABS: CALCIUM 8.3 mg/dL (8.5-10.1); CREATININE 0.7 mg/dL (0.6-1.3); POTASSIUM 3.3 mmol/L (3.5-5.1)
[2016-10-09 06:11] LABS: HEMATOCRIT 25.9 % (37.0-47.0); HEMOGLOBIN 8.4 gm/dL (12.0-15.0); MCH 26.5 pg (26.0-34.0); MCHC 32.6 g/dL (28.0-37.0); MCV 81.2 fL (80.0-100.0); RBC 3.19 mil/uL (4.20-5.00); WBC 10.9 thou/uL (4.0-11.0)
[2016-10-09 06:23] LABS: INR 1.9; PROTIME 19.4 Seconds (9.3-11.4)
[2016-10-09 06:29] LABS: CALCIUM 8.6 mg/dL (8.5-10.1); CREATININE 0.7 mg/dL (0.6-1.3); POTASSIUM 3.7 mmol/L (3.5-5.1)
[2016-10-09] MEDS ORDERED: CARDIZEM CD 18180 M3 PO (12:30)
[2016-10-09] MEDS ORDERED: VANCOMYCIN100 MG/M1 PO (12:30)
[2016-10-09] MEDS ORDERED: COUMADIN7.5 MG PO (12:30)
[2016-10-09] MEDS ORDERED: ENOXAPARIN80 MG/0.1 SUBQ (12:30)
== END 2016-10-09 19:30 | DRG 871 ==
LOC: ER 13:29 → 4E 15:52 → EROBS 15:52 → 4E 18:35
PROVIDERS: Emergency Medicine; Family Medicine; Hospitalist; Nurse Practitioner; Nurse Practitioner Acute Care; Specialist
PROC: 02H633Z Insertion of Infusion Device into Right Atrium, Percutaneous Approach (ICD-10-PCS; principal; 2016-09-14)
PROC: 0DBP8ZX Excision of Rectum, Via Natural or Artificial Opening Endoscopic, Diagnostic (ICD-10-PCS; 2016-09-26)
PROC: 0DBG8ZX Excision of Left Large Intestine, Via Natural or Artificial Opening Endoscopic, Diagnostic (ICD-10-PCS; 2016-09-26)
PROC: 0DBK8ZX Excision of Ascending Colon, Via Natural or Artificial Opening Endoscopic, Diagnostic (ICD-10-PCS; 2016-09-26)
PROC: 0DH63UZ Insertion of Feeding Device into Stomach, Percutaneous Approach (ICD-10-PCS; 2016-10-07)
DX: A41.9 Sepsis, unspecified organism (principal); E43 Unspecified severe protein-calorie malnutrition; N17.0 Acute kidney failure with tubular necrosis; G93.40 Encephalopathy, unspecified; A04.7 Enterocolitis due to Clostridium difficile; N39.0 Urinary tract infection, site not specified; E87.0 Hyperosmolality and hypernatremia; I82.401 Acute embolism and thrombosis of unspecified deep veins of right lower extremity; K92.2 Gastrointestinal hemorrhage, unspecified; K56.1 Intussusception; K62.6 Ulcer of anus and rectum; I48.91 Unspecified atrial fibrillation; E86.0 Dehydration; F03.90 Unspecified dementia, unspecified severity, without behavioral disturbance, psychotic disturbance, mood disturbance, and anxiety; D64.9 Anemia, unspecified; D17.5 Benign lipomatous neoplasm of intra-abdominal organs; I10 Essential (primary) hypertension; Z79.01 Long term (current) use of anticoagulants; Z28.21 Immunization not carried out because of patient refusal; Z68.25 Body mass index [BMI] 25.0-25.9, adult; Z88.8 Allergy status to other drugs, medicaments and biological substances; Z88.6 Allergy status to analgesic agent; Z88.2 Allergy status to sulfonamides; Z91.041 Radiographic dye allergy status
CPT/HCPCS: 10084; 27000; 62110; 62900; 70005

== ENCOUNTER 2016-10-14 12:53 | Inpatient (IN) | payer OTHER ==
[~2016-10-14] VITALS: Ht 180.3 cm; Wt 79.4 kg
--- NOTE | ~2016-10-14 | EKG ---
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: [id number] : 1930 Requested By: Ever Clinton Order Number: [id number] MD: Kev Montoya Measurements Intervals [place] Rate: 104 P: 106 KS: 165 QRS: 7 QRSD: 89 T: 42 QT: 348 QTc: 458 Interpretive Statements Sinus tachycardia Atrial premature complex Left ventricular hypertrophy Anterior ST elevation, probably due to LVH Compared to ECG 09/09/2016 13:59:59 ST (T wave) deviation still present Electronically Signed On 10-15-2016 7:48:18 CDT by Kev Montoya [email or web address] <ELECTRONICALLY SIGNED> By: Kev Montoya MD, [facility] 10/15/16 0748 1329 1329 Kev Montoya MD, [facility] /EPI
[~2016-10-14 12:53] MED LIST changes: +CARDIZEM CD 18180 M3 PO; +COUMADIN7.5 MG PO; +ENOXAPARIN80 MG/0.1 SUBQ; +VANCOMYCIN100 MG/M1 PO
[2016-10-14 12:54] VITALS: BP 138/81
[2016-10-14 13:36] LABS: ABSOLUTE NEUTROPHILS 5.7 thou/uL (1.4-8.2); BASOPHILS 1.1 % (0.0-2.0); EOSINOPHILS 0.7 % (0.0-3.0); HEMATOCRIT 29.2 % (37.0-47.0); HEMOGLOBIN 9.5 gm/dL (12.0-15.0); LYMPHOCYTES 24.9 % (24.0-44.0); MCH 26.3 pg (26.0-34.0); MCHC 32.6 g/dL (28.0-37.0); MCV 80.6 fL (80.0-100.0); MONOCYTES 6.8 % (1.0-8.0); PLATELET COUNT 414 thou/uL (150-400); POLYS 66.5 % (36.0-66.0); RBC 3.63 mil/uL (4.20-5.00); RDW 18.5 % (10.5-14.5); WBC 8.5 thou/uL (4.0-11.0)
[2016-10-14 13:38] LABS: MANUAL DIFF NO
[2016-10-14 13:45] LABS: CALCIUM 9.4 mg/dL (8.5-10.1); CREATININE 0.7 mg/dL (0.6-1.3); POTASSIUM 3.9 mmol/L (3.5-5.1)
[2016-10-14 13:50] LABS: INR 1.3; PROTIME 13.9 Seconds (9.3-11.4)
[2016-10-14 13:51] LABS: ALBUMIN 2.3 g/dL (3.4-5.0); MAGNESIUM 1.9 mg/dL (1.8-2.4); TOTAL BILIRUBIN 0.2 mg/dL (<0.1-1.0); TOTAL PROTEIN 6.8 g/dL (6.4-8.2); TROPONIN-I 0.14 ng/mL (<0.04-0.07)
[2016-10-14 14:15] LABS: ANISOCYTOSIS 1+; HYPOCHROMASIA SLIGHT; MICROCYTES SLIGHT
[2016-10-14 14:57] LABS: URINE BILIRUBIN NEGATIVE (Negative); URINE BLOOD 3+ (Negative); URINE COLOR YELLOW; URINE GLUCOSE-RANDOM* NEGATIVE (Negative); URINE KETONES NEGATIVE (Negative); URINE NITRITE NEGATIVE (Negative); URINE PROTEIN (DIPSTICK) 2+ (Negative); URINE SPECIFIC GRAVITY >= 1.030 (1.003-1.035); URINE UROBILINOGEN 0.2 E.U./dl (0.2-1.0)
[2016-10-14 15:06] LABS: AMP/METHAMP Negative (Negative); BARBITURATES Negative (Negative); BENZODIAZEPINES Negative (Negative); COCAINE Negative (Negative); METHADONE Negative (Negative); OPIATES Negative (Negative); PCP Negative (Negative); THC Negative (Negative)
[2016-10-14 15:07] LABS: CASTS None Seen /LPF (None Seen); CRYSTALS None Seen /LPF (None Seen); SQUAMOUS 4-10 Moderate /LPF (0-3); URINE RBC >20 Many /HPF (0-2); URINE WBC 6-15 Few /HPF (0-5)
[2016-10-14 17:28] VITALS: BP 138/61
[2016-10-14 20:23] VITALS: BP 136/63
[2016-10-15] VITALS: BP 136/71
[2016-10-15 04:00] VITALS: BP 132/79
[2016-10-15 06:08] LABS: HEMATOCRIT 27.2 % (37.0-47.0); HEMOGLOBIN 8.8 gm/dL (12.0-15.0); MCH 26.5 pg (26.0-34.0); MCHC 32.4 g/dL (28.0-37.0); MCV 81.7 fL (80.0-100.0); RBC 3.33 mil/uL (4.20-5.00); RDW 18.9 % (10.5-14.5); WBC 6.9 thou/uL (4.0-11.0)
[2016-10-15 06:20] LABS: INR 1.4; PROTIME 14.4 Seconds (9.3-11.4)
[2016-10-15 06:29] LABS: ALBUMIN 2.3 g/dL (3.4-5.0); CALCIUM 9.2 mg/dL (8.5-10.1); CREATININE 0.7 mg/dL (0.6-1.3); PHOSPHORUS 4.2 mg/dL (2.5-4.9); POTASSIUM 3.4 mmol/L (3.5-5.1)
[2016-10-15 09:03] VITALS: BP 154/63
[2016-10-15] MEDS ORDERED: CEFTIN 250250 MG/52 PER TUBE (09:08)
[2016-10-15 12:15] VITALS: BP 129/89
[2016-10-15 14:02] VITALS: BP 154/63
== END 2016-10-15 16:15 | DRG 371 ==
LOC: ER 12:53 → EROBS 14:35 → 2N 14:35
PROVIDERS: Emergency Medicine; Hospitalist
DX: A04.7 Enterocolitis due to Clostridium difficile (principal); G93.41 Metabolic encephalopathy; J18.9 Pneumonia, unspecified organism; N39.0 Urinary tract infection, site not specified; E46 Unspecified protein-calorie malnutrition; I82.401 Acute embolism and thrombosis of unspecified deep veins of right lower extremity; M43.6 Torticollis; F03.90 Unspecified dementia, unspecified severity, without behavioral disturbance, psychotic disturbance, mood disturbance, and anxiety; E78.5 Hyperlipidemia, unspecified; E86.0 Dehydration; I10 Essential (primary) hypertension; I48.91 Unspecified atrial fibrillation; E87.6 Hypokalemia; Z88.8 Allergy status to other drugs, medicaments and biological substances; Z79.899 Other long term (current) drug therapy; Z68.24 Body mass index [BMI] 24.0-24.9, adult; Z88.6 Allergy status to analgesic agent; Z88.2 Allergy status to sulfonamides; Z91.041 Radiographic dye allergy status
CPT/HCPCS: 10081

== ENCOUNTER 2016-10-25 18:23 | Inpatient (IN) | payer OTHER ==
[~2016-10-25] VITALS: Ht 180.3 cm; Wt 104.3 kg
--- NOTE | ~2016-10-25 | CNG ---
[facility] [place] [address] CYTO-NONGYN REPORT PROCEDURE Name: TRACY BENITEZ Room #: 421-P DIS IN M.R.#: [id number] Admission: 10/25/16 Date of : 30 Discharge: 11/04/16 Report #: [id number] Path Case #: [id number] CYTOPATHOLOGY REPORT COLLECTION DATE: 11/03/2016 RECEIVED DATE: 11/03/2016 SUBMITTING PHYS: Dr. Lizy Mendoza OTHER PHYS: ADDENDUM REPORT (Order Date: 11/05/2016 11:51) ADDENDUM COMMENT: The immunoperoxidase stain for BerEP4 is negative and calretinin is positive. The atypical cells are likely reactive mesothelial cells. (SHA:lane; d/t: 11/05/2016) Professional services performed by [facility], [address] [place] [address]. Technical services performed by [facility] at [address] [place] [address], [facility] [address] [place] [address]. ELECTRONICALLY SIGNED BY: Wilner Oliva M.D. DATE/TIME:11/05/2016 12:00 CLINICAL HISTORY: Pneumonia; HCAP SPECIMEN(S) RECEIVED: A.Pleural fluid, left * * * * * * * * * * * * FINAL DIAGNOSIS: A. Pleural fluid, left: Few mildly atypical cells identified amongst many reactive mesothelial cells. . COMMENT: Immunoperoxidase stains calretinin and BerEP4 will be done, an additional report will follow. (SHA:lane; d/t: 11/04/2016) PATHOLOGIST: Wilner Oliva M.D. REPORT ELECTRONICALLY SIGNED BY: Wilner Oliva M.D. DATE/TIME: 11/04/2016 12:38 * * * * * * * * * * * * GROSS PATHOLOGY: A. Pleural fluid, left: The specimen is submitted unifxed, labeled "Tracy Benitez". Received by the Cytology Department is 15 mL of yellow fluid. One ThinPrep slide and a cell block were prepared. (kg 11/03/16) [address] [address] CYTO-NONGYN REPORT PROCEDURE Name: TRACY BENITEZ Room #: 421-P [facility] IN ..#: [id number] Admission: 10/25/16 Date of : 30 Discharge: 11/04/16 Report #: [id number] Path Case #: [id number] LARGE SHEETFED PRESS OPERATOR(S): CHRIS German(ASCP) INITIAL CPT CODE(S): A; 21775, 08372, 69336, 88836 Professional services performed by [facility] at [address], [place] [address] Technical [facility] performed by [facility] at [address] [place] [address]., [address], [place] [address]. [facility] [address] [place] [address], [address] [place] [address] PHONE: [phone] DIRECTOR: Zia Rodriguez M.D. * * * END OF REPORT * * *
--- NOTE | ~2016-10-25 | EKG ---
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
--- NOTE | ~2016-10-25 | HC ---
[facility] [place] [address] CONSULTATION Name: EDUARDO CAVAZOS Room #: 421-P [facility] IN M.R.#: [id number] Admission: 10/25/16 Attend Phys: Anson Stein MD Discharge: Date of : 30 Report #: [id number] THIS REPORT FOR: //name// CC: Lizy Stein DATE OF SERVICE: 10/26/2016 CONSULTATION: Infectious diseases. DATE OF CONSULTATION: 10/26/2016 HISTORY OF PRESENT ILLNESS: The unfortunate patient is readmitted at [facility] on October 25 with working diagnosis of pneumonia in the setting of chronic C. difficile disease. This is the fourth hospitalization in 2017 for the patient. She had an extended hospitalization from until October 09. At that time, the patient was treated for urinary tract infection, renal failure, aspiration pneumonia and developed severe C. difficile disease. The patient was being setup for a stool transplant after failure to respond to antimicrobial therapy. I believe that this was delayed because of issues regarding the stool donor. The patient was discharged, but returned 5 days later for approximately 48 hours. She then was returned to the retirement. The current problem began approximately 24 hours prior to admission when the patient started to be more weak and coughing. She was having nausea and vomiting. She had started feeding again. Speech therapy evaluation recommended modified diet with careful observation. The patient was still on cefuroxime by G-tube since her last discharge on October 15, I believe for respiratory condition she had been on vancomycin since October 09 for the diarrhea. She continued to require a rectal tube for large volume liquid stool. In this setting, the patient was thought to have a new pneumonia and was transferred back to acute care and started on Zosyn with continued oral vancomycin. PAST MEDICAL HISTORY: Significant for severe dementia, hypertension, atrial fibrillation, deep vein thrombosis, but the patient was anticoagulated. She had GI bleeding. She has had a gastrostomy tube for nutrition as well as the fecal management system for stool collection. ALLERGIES: The chart notes allergies to SULFA drugs as well as THIAZIDE, ROXIE INHIBITORS, LOOP DIURETICS, AND ANGIOTENSIN RECEPTOR BLOCKERS. I suspect that many of these are not true allergies, but simply a result of her rising creatinine and previous hospitalizations, which may be attributing part to dehydration and medication. MEDICATION RECONCILIATION: Lactobacillus acidophilus 2 capsules daily, [address] [address] CONSULTATION Name: EDUARDO CAVAZOS Room #: 421-P ADM IN Levi.RJessica#: [id number] Admission: 10/25/16 Attend Phys: Anson Stein MD Discharge: Date of : 30 Report #: [id number] donepezil 10 mg daily, memantine 10 mg b.i.d., clonidine 0.3 mg b.i.d., atorvastatin 20 mg at bedtime, warfarin 5 mg daily, Questran 4 g t.i.d., insulin sliding scale, Xanax 0.5 q. 8 hours p.r.n., Tylenol 650 q. 4 hours p.r.n., diltiazem CD 360 mg daily, pantoprazole 40 mg IV daily, Zosyn q. 6 hours, vancomycin 250 mg per G-tube daily. FAMILY HISTORY: Noncontributory. SOCIAL HISTORY: The patient is . No history of tobacco, alcohol or drugs. I believe she was a chronic retirement patient, assuming has not been able to go home since her hospitalization on August 14. REVIEW OF SYSTEMS: Unavailable because of patient's dementia. PHYSICAL EXAMINATION: GENERAL: The patient appears her stated age resting quietly in no distress. VITAL SIGNS: Normal. The patient is afebrile. She appears somewhat wasted. ENT: Negative. HEART: Sounds normal. LUNGS: Clear. ABDOMEN: Belly gastrostomy tube and a rectal tube, large volume liquid stool in the collection system. EXTREMITIES: Unremarkable. LABORATORY DATA: White count of 8.0, hemoglobin 10, hematocrit 31%, platelets 347,000. Electrolytes are normal except for potassium 3.2, glucose 100. Liver function tests normal. Troponin is elevated at 0.13, lactate is normal. Chest x-ray shows bilateral infiltrates, but to my eye looked not much different than when she was last hospitalized in September. The left heart border is obscured. There is atelectasis, possibly some infusion. IMPRESSION: 1. Persistent diarrhea with Clostridium difficile. 2. Abnormal chest x-ray, although I doubt acute pneumonia. The patient has abnormal chest x-ray, which looks fairly chronic and her white count is normal. Her breathing is normal. Her lactate is normal. I would anticipate the healthcare-associated pneumonia in such a debilitated patient would have much more obvious signs of respiratory compromise, there may be slight increased fluid in the chest or more atelectasis. The patient did start eating soft food. There may be an element of aspiration with her cough and weakness as well. The patient continues to have the watery diarrhea with a history of uncontrolled C. difficile. In spite of therapy, there was some question whether there may be superimposed rotavirus although would anticipate this would resolve fairly [facility] [address] [place] [address] CONSULTATION Name: EDUARDO CAVAZOS Room #: 421-P [facility] IN [place]#: [id number] Admission: 10/25/16 Attend Phys: Anson tSein MD Discharge: Date of : 30 Report #: [id number] quickly. I would agree with vancomycin at double dose 250 mg p.o. q.i.d. I would like to increase her probiotics to 1 packet lactobacillus bulgaricus t.i.d. I think we can safely discontinue the Zosyn. In this patient, empiric antibiotic therapy carries a particularly severe burden in terms of exacerbating and prolonging her C. difficile disease. May be worthwhile to check a BNP to assess for fluid overload as well as follow her troponin carefully to make sure she has not suffered an acute infarction. Going forward, assuming the patient continued to have C. difficile stools could include fidaxomicin 200 mg b.i.d. x 10 days, generally the cost of this drug precludes transfer to a retirement unless special arrangements could be made for these pills, which I believe have list stein of 4000 dollars for a 10-day course. It appears that the stool transplant was not done during the last hospitalization. We may want to continue to go forward to have this, if it has not been tried. In addition, there is a new monoclonal antibody, which is available for C. difficile persistent disease, which may be something to consider in a complex patient such as this patient. Dr. Ever Harris knows this patient quite well from her multiple previous hospitalizations. They will return on Thursday morning and can further assist in setting up appropriate care. I appreciate the opportunity to offer input over the weekend for the patient. Thank you for requesting infectious disease followup. By: [id number] [id number] Hemal Coley MD /emily
[~2016-10-25 18:23] MED LIST changes: +CEFTIN 250250 MG/52 PER TUBE
[2016-10-25 18:24] VITALS: BP 140/72
[2016-10-25 18:37] LABS: ABSOLUTE NEUTROPHILS 5.5 thou/uL (1.4-8.2); BASOPHILS 0.9 % (0.0-2.0); EOSINOPHILS 2.1 % (0.0-3.0); HEMATOCRIT 31.3 % (37.0-47.0); HEMOGLOBIN 10.2 gm/dL (12.0-15.0); MCH 26.5 pg (26.0-34.0); MCHC 32.6 g/dL (28.0-37.0); MCV 81.2 fL (80.0-100.0); MONOCYTES 5.4 % (1.0-8.0); PLATELET COUNT 363 thou/uL (150-400); POLYS 68.6 % (36.0-66.0); RBC 3.86 mil/uL (4.20-5.00); RDW 17.4 % (10.5-14.5)
[2016-10-25 18:39] LABS: MANUAL DIFF NO
[2016-10-25 18:46] LABS: CALCIUM 9.4 mg/dL (8.5-10.1); CREATININE 0.9 mg/dL (0.6-1.3); POTASSIUM 3.5 mmol/L (3.5-5.1)
[2016-10-25 18:53] LABS: ALBUMIN 2.6 g/dL (3.4-5.0); TOTAL BILIRUBIN 0.3 mg/dL (<0.1-1.0); TOTAL PROTEIN 7.3 g/dL (6.4-8.2); TROPONIN-I 0.13 ng/mL (<0.04-0.07)
[2016-10-25 20:00] VITALS: BP 148/72
[2016-10-25 20:14] VITALS: BP 135/70
[2016-10-25 22:00] VITALS: BP 164/89
[2016-10-25 22:51] LABS: PROTIME 30.7 Seconds (9.3-11.4)
[2016-10-26 02:23] VITALS: BP 166/88
[2016-10-26 07:01] LABS: ABSOLUTE NEUTROPHILS 6.4 thou/uL (1.4-8.2); BASOPHILS 0.6 % (0.0-2.0); EOSINOPHILS 0.5 % (0.0-3.0); HEMATOCRIT 31.1 % (37.0-47.0); LYMPHOCYTES 14.4 % (24.0-44.0); MCH 26.2 pg (26.0-34.0); MCHC 32.2 g/dL (28.0-37.0); MCV 81.5 fL (80.0-100.0); MONOCYTES 5.3 % (1.0-8.0); PLATELET COUNT 347 thou/uL (150-400); POLYS 79.2 % (36.0-66.0); RBC 3.82 mil/uL (4.20-5.00); RDW 17.9 % (10.5-14.5)
[2016-10-26 07:05] LABS: MANUAL DIFF NO
[2016-10-26 07:15] LABS: ALBUMIN 2.5 g/dL (3.4-5.0); CALCIUM 9.2 mg/dL (8.5-10.1); CREATININE 0.8 mg/dL (0.6-1.3); MAGNESIUM 1.8 mg/dL (1.8-2.4); POTASSIUM 3.2 mmol/L (3.5-5.1); TOTAL BILIRUBIN 0.5 mg/dL (<0.1-1.0); TOTAL PROTEIN 7.2 g/dL (6.4-8.2)
[2016-10-26 07:38] LABS: INR 2.8; PROTIME 29.4 Seconds (9.3-11.4)
[2016-10-26 08:50] VITALS: BP 146/88
[2016-10-26 13:24] VITALS: BP 140/73
[2016-10-26 16:30] VITALS: BP 155/70
[2016-10-26 20:00] VITALS: BP 151/78
[2016-10-27] VITALS: BP 118/61
[2016-10-27 04:31] VITALS: BP 144/75
[2016-10-27 04:47] LABS: HEMATOCRIT 28.2 % (37.0-47.0); HEMOGLOBIN 9.1 gm/dL (12.0-15.0); MCH 26.4 pg (26.0-34.0); MCHC 32.3 g/dL (28.0-37.0); MCV 81.5 fL (80.0-100.0); RBC 3.46 mil/uL (4.20-5.00); RDW 17.4 % (10.5-14.5)
[2016-10-27 04:52] LABS: CALCIUM 9.1 mg/dL (8.5-10.1); CREATININE 0.9 mg/dL (0.6-1.3); POTASSIUM 3.5 mmol/L (3.5-5.1)
[2016-10-27 08:06] VITALS: BP 144/81
[2016-10-27 15:53] VITALS: BP 136/75
[2016-10-27 15:55] LABS: INR 2.6
[2016-10-27 20:00] VITALS: BP 155/78
[2016-10-28 04:00] VITALS: BP 139/85
[2016-10-28 06:33] LABS: HEMATOCRIT 27.2 % (37.0-47.0); HEMOGLOBIN 8.8 gm/dL (12.0-15.0); MCH 26.1 pg (26.0-34.0); MCHC 32.3 g/dL (28.0-37.0); MCV 80.8 fL (80.0-100.0); RBC 3.37 mil/uL (4.20-5.00); RDW 17.4 % (10.5-14.5); WBC 6.3 thou/uL (4.0-11.0)
[2016-10-28 06:47] LABS: INR 1.9; PROTIME 19.6 Seconds (9.3-11.4)
[2016-10-28 06:50] LABS: CREATININE 0.7 mg/dL (0.6-1.0); POTASSIUM 3.9 mmol/L (3.5-5.1)
[2016-10-28 07:45] VITALS: BP 161/83
[2016-10-28 15:18] VITALS: BP 180/86
[2016-10-28 22:00] VITALS: BP 129/67
[2016-10-29 04:30] VITALS: BP 156/80
[2016-10-29 05:29] LABS: HEMATOCRIT 29.7 % (37.0-47.0); HEMOGLOBIN 9.5 gm/dL (12.0-15.0); MCH 25.8 pg (26.0-34.0); MCHC 31.9 g/dL (28.0-37.0); MCV 80.7 fL (80.0-100.0); RBC 3.68 mil/uL (4.20-5.00); RDW 17.6 % (10.5-14.5); WBC 9.5 thou/uL (4.0-11.0)
[2016-10-29 05:41] LABS: INR 1.5; PROTIME 15.4 Seconds (9.3-11.4)
[2016-10-29 05:43] LABS: CALCIUM 9.1 mg/dL (8.5-10.1); CREATININE 0.8 mg/dL (0.6-1.0); POTASSIUM 3.9 mmol/L (3.5-5.1)
[2016-10-29 07:53] VITALS: BP 154/78
[2016-10-29 10:03] LABS: % SATURATION 9 % (20-39); IRON 30 ug/dL (50-170); TIBC 322 ug/dL (250-450); UIBC 292 ug/dL
[2016-10-29 10:33] LABS: FOLIC ACID 19.6 ng/mL (8.6-58.9)
[2016-10-29 13:03] LABS: URINE BILIRUBIN NEGATIVE (Negative); URINE BLOOD 3+ (Negative); URINE COLOR RED; URINE GLUCOSE-RANDOM* NEGATIVE (Negative); URINE KETONES NEGATIVE (Negative); URINE LEUKOCYTES-REFLEX 2+ (Negative); URINE PROTEIN (DIPSTICK) 2+ (Negative); URINE UROBILINOGEN 0.2 E.U./dl (0.2-1.0)
[2016-10-29 13:08] LABS: CASTS None Seen /LPF (None Seen); SQUAMOUS 0-3 Few /LPF (0-3); URINE WBC-REFLEX >25 Many /HPF (0-5)
[2016-10-29 13:09] LABS: CRYSTALS None Seen /LPF (None Seen); URINE RBC >20 Many /HPF (0-2)
[2016-10-29 13:10] LABS: YEAST-REFLEX Present (None Seen)
[2016-10-29 16:02] VITALS: BP 155/76
[2016-10-29 20:00] VITALS: BP 159/82
[2016-10-30 04:00] VITALS: BP 156/79
[2016-10-30 06:11] LABS: INR 1.4; PROTIME 14.5 Seconds (9.3-11.4)
[2016-10-30 07:58] VITALS: BP 148/71
[2016-10-30 16:04] VITALS: BP 131/61
[2016-10-30 20:00] VITALS: BP 110/60
[2016-10-31 04:00] VITALS: BP 166/76
[2016-10-31 08:49] VITALS: BP 138/87
[2016-10-31 09:31] LABS: HEMATOCRIT 27.8 % (37.0-47.0); HEMOGLOBIN 8.9 gm/dL (12.0-15.0); MCH 25.5 pg (26.0-34.0); MCHC 31.9 g/dL (28.0-37.0); MCV 79.9 fL (80.0-100.0); RBC 3.48 mil/uL (4.20-5.00); RDW 16.9 % (10.5-14.5); WBC 9.8 thou/uL (4.0-11.0)
[2016-10-31 09:46] LABS: CALCIUM 9.2 mg/dL (8.5-10.1); CREATININE 0.9 mg/dL (0.6-1.0); MAGNESIUM 2.1 mg/dL (1.8-2.4); POTASSIUM 4.5 mmol/L (3.5-5.1)
[2016-10-31 13:59] LABS: INR 1.4; PROTIME 14.2 Seconds (9.3-11.4)
[2016-10-31 18:00] VITALS: BP 133/75
[2016-10-31 18:40] LABS: URINE BILIRUBIN NEGATIVE (Negative); URINE BLOOD 1+ (Negative); URINE COLOR YELLOW; URINE GLUCOSE-RANDOM* NEGATIVE (Negative); URINE KETONES NEGATIVE (Negative); URINE NITRITE NEGATIVE (Negative); URINE PROTEIN (DIPSTICK) NEGATIVE (Negative); URINE UROBILINOGEN 0.2 E.U./dl (0.2-1.0)
[2016-10-31 18:49] LABS: URINE RBC 3-10 Few /HPF (0-2)
[2016-10-31 18:50] LABS: BACTERIA 1-9 Few /HPF (None Seen); CASTS None Seen /LPF (None Seen); CRYSTALS None Seen /LPF (None Seen); SQUAMOUS 0-3 Few /LPF (0-3); URINE WBC 0-5 Rare /HPF (0-5)
[2016-10-31 20:19] VITALS: BP 148/69
[2016-11-01 05:15] LABS: HEMOGLOBIN 8.7 gm/dL (12.0-15.0); MCH 25.8 pg (26.0-34.0); MCHC 32.2 g/dL (28.0-37.0); RBC 3.37 mil/uL (4.20-5.00); WBC 7.7 thou/uL (4.0-11.0)
[2016-11-01 05:30] LABS: CALCIUM 9.1 mg/dL (8.5-10.1); CREATININE 0.8 mg/dL (0.6-1.0); MAGNESIUM 1.9 mg/dL (1.8-2.4); POTASSIUM 4.3 mmol/L (3.5-5.1)
[2016-11-01 05:50] VITALS: BP 147/85
[2016-11-01 08:02] VITALS: BP 148/82
[2016-11-01 15:25] VITALS: BP 146/79
[2016-11-01 20:30] VITALS: BP 129/95
[2016-11-02 03:49] LABS: HEMATOCRIT 29.4 % (37.0-47.0); HEMOGLOBIN 9.3 gm/dL (12.0-15.0); MCH 25.4 pg (26.0-34.0); MCHC 31.5 g/dL (28.0-37.0); MCV 80.8 fL (80.0-100.0); RBC 3.64 mil/uL (4.20-5.00); RDW 17.2 % (10.5-14.5); WBC 14.2 thou/uL (4.0-11.0)
[2016-11-02 04:05] LABS: CALCIUM 9.4 mg/dL (8.5-10.1); CREATININE 0.8 mg/dL (0.6-1.0); POTASSIUM 4.3 mmol/L (3.5-5.1)
[2016-11-02 04:30] VITALS: BP 162/92
[2016-11-02 07:45] VITALS: BP 146/95
[2016-11-02 15:28] VITALS: BP 163/84
[2016-11-02 20:22] VITALS: BP 176/85
[2016-11-03 04:00] VITALS: BP 155/80
[2016-11-03 07:33] VITALS: BP 158/81
[2016-11-03 12:25] LABS: HEMATOCRIT 25.8 % (37.0-47.0); HEMOGLOBIN 8.3 gm/dL (12.0-15.0); MCH 25.7 pg (26.0-34.0); MCHC 32.3 g/dL (28.0-37.0); MCV 79.7 fL (80.0-100.0); RBC 3.23 mil/uL (4.20-5.00); RDW 17.3 % (10.5-14.5); WBC 8.8 thou/uL (4.0-11.0)
[2016-11-03 12:44] LABS: POTASSIUM 4.2 mmol/L (3.5-5.1)
[2016-11-03 13:14] LABS: INR 1.5; PROTIME 15.4 Seconds (9.3-11.4)
[2016-11-03 14:44] VITALS: BP 136/66
[2016-11-03 16:06] LABS: CLARITY COULDY; COLOR YELLOW; TOTAL VOLUME 55 mL
[2016-11-03 16:07] VITALS: BP 124/74
[2016-11-03 16:12] LABS: BF NUCLEATED CELLS 384; BF RBC 982
[2016-11-03 18:27] LABS: BF NEUTROPHILS 5
[2016-11-03 18:30] LABS: BF MACROPHAGE 11
[2016-11-03 18:36] LABS: MANUAL DIFF YES
[2016-11-03 20:00] VITALS: BP 125/72
[2016-11-04 03:25] VITALS: BP 139/73
[2016-11-04 05:14] LABS: HEMATOCRIT 26.3 % (37.0-47.0); HEMOGLOBIN 8.5 gm/dL (12.0-15.0); MCH 25.9 pg (26.0-34.0); MCHC 32.3 g/dL (28.0-37.0); MCV 80.1 fL (80.0-100.0); RBC 3.28 mil/uL (4.20-5.00); RDW 17.2 % (10.5-14.5); WBC 7.5 thou/uL (4.0-11.0)
[2016-11-04 05:25] LABS: CALCIUM 8.9 mg/dL (8.5-10.1); CREATININE 0.9 mg/dL (0.6-1.0)
[2016-11-04 08:00] VITALS: BP 169/79
[2016-11-04 15:25] VITALS: BP 126/66
[2016-11-04] MEDS ORDERED: PROTONIX40 M1 PO (16:03)
[2016-11-04] MEDS ORDERED: DOXYCYCLINE 10100 MG PO (16:24)
[2016-11-05 17:10] LABS: BODY FLUID ALBUMIN 1.1 g/dL (()); BODY FLUID AMYLASE 16 U/L (()); BODY FLUID GLUCOSE 124 mg/dL (()); BODY FLUID LDH 78 IU/L (()); BODY FLUID PROTEIN 2.1 g/dL (())
== END 2016-11-04 17:32 | DRG 871 ==
LOC: ER 18:23 → 4E 19:14 → EROBS 19:14 → 4E 19:39
PROVIDERS: Hospitalist; Internal Medicine; Nurse Practitioner; Physician Assistant; Specialist
PROC: 0W9B30Z Drainage of Left Pleural Cavity with Drainage Device, Percutaneous Approach (ICD-10-PCS; principal; 2016-11-03)
DX: A41.9 Sepsis, unspecified organism (principal); J69.0 Pneumonitis due to inhalation of food and vomit; E43 Unspecified severe protein-calorie malnutrition; A04.7 Enterocolitis due to Clostridium difficile; J98.11 Atelectasis; N39.0 Urinary tract infection, site not specified; F03.90 Unspecified dementia, unspecified severity, without behavioral disturbance, psychotic disturbance, mood disturbance, and anxiety; E78.5 Hyperlipidemia, unspecified; I48.91 Unspecified atrial fibrillation; D50.9 Iron deficiency anemia, unspecified; I10 Essential (primary) hypertension; Z88.8 Allergy status to other drugs, medicaments and biological substances; Z88.6 Allergy status to analgesic agent; Z91.041 Radiographic dye allergy status; Z86.718 Personal history of other venous thrombosis and embolism; Z93.1 Gastrostomy status; Z68.32 Body mass index [BMI] 32.0-32.9, adult
CPT/HCPCS: 10183; 10783; 27001; 50454

== ENCOUNTER 2016-11-17 10:11 | Inpatient (IN) | payer OTHER ==
[~2016-11-17] VITALS: Ht 180.3 cm; Wt 77.7 kg
--- NOTE | ~2016-11-17 | EKG ---
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: MZOOK : 1930 Requested By: Ever Clinton Order Number: [id number] MD: Kev Montoya Measurements Intervals [place] Rate: 115 P: 44 [place]: 168 QRS: -4 QRSD: 88 T: 58 QT: 334 QTc: 462 Interpretive Statements Sinus tachycardia Probable left atrial enlargement LVH with secondary repolarization abnormality Anterior Q waves, possibly due to LVH Compared to ECG 10/25/2016 18:57:59 No significant change was found Electronically Signed On 11-18-2016 8:54:51 CDT by Kev Montoya [email or web address] <ELECTRONICALLY SIGNED> By: Kev Montoya MD, [facility] 11/18/16 0854 1057 1057 Kev Montoya MD, [facility] /EPI
--- NOTE | ~2016-11-17 | 2DMMODE ---
[facility] [address] [place] [address] 2 D/M-MODE ECHOCARDIOGRAM Name: EDUARDO CAVAZOS Room #: 421-P [facility] IN M.R.#: [id number] Admission: 11/17/16 Attend Phys: Dilan Mckeon, Discharge: Date of : 30 Date of Service: 11/18/16 1554 Report #: [id number] THIS REPORT FOR: //name// APPROVED REPORT Study performed: 11/18/2016 13:51:33 EXAM: Comprehensive 2D, Doppler, and color-flow Echocardiogram Patient Location: Bedside Room #: 421 Blood Pressure: 185/114 mmHg HR: 122 bpm Rhythm: Tachycardia Other Information Study Quality: Adequate Technically limited study due to uncooperative patient. Not all measurements taken.. Indications Elevated BNP. Hx: HTN, HLP, Afib. 2D Dimensions LVEF(%): 29.68 (>50%) IVSd: 13.90 (7-11mm) LVOT Diam: 19.55 (18-24mm) LVDd: 44.86 mm PWd: 13.48 (7-11mm) LVDs: 38.66 (25-40mm) Aortic Root: 29.52 mm Foster's LVEF: 29.68 % Aortic Valve AoV Peak Santhosh.: 3.83 m/s AO Peak Gr.: 58.83 mmHg LVOT Max P.36 mmHg AO Mean Gr.: 40.20 mmHg LVOT Max V: 1.16 m/s AO V2 VTI: 72.64 cm Pulmonary Valve PV Peak Santhosh.: 1.06 m/s PV Peak Gr.: 4.57 mmHg Tricuspid Valve [facility] [address] [place] [address] 2 D/M-MODE ECHOCARDIOGRAM Name: EDUARDO CAVAZOS Room #: 421-P ADM IN .R.#: [id number] Admission: 11/17/16 Attend Phys: Dilan Mckeon, Discharge: Date of : 30 Date of Service: 11/18/16 1554 Report #: [id number] TR Peak Santhosh.: 3.78 m/s RAP Estimate: 5.00 mmHg TR Peak Gr.: 57.04 mmHg RVSP: 62.00 mmHg Left Ventricle The left ventricle is normal size. Mild concentric left ventricular hypertrophy. Left ventricular systolic function is moderately decreased. LVEF is 30-35%. This study is not technically sufficient to allow evaluation of the LV diastolic function. Right Ventricle Right ventricle is not well visualized but appears hypokinetic. Atria Left atrium is dilated. The right atrium size is normal. Aortic Valve Aortic valve is moderately thickened and calcified. Trace aortic regurgitation. Moderate to severe aortic stenosis. Mitral Valve Mitral valve leaflets are calcified. Mild mitral annular calcification. Moderate mitral regurgitation. Tricuspid Valve The tricuspid valve is normal in structure. There is mild to moderate tricuspid regurgitation. The right atrial pressure is estimated at 5 mmHg. There is moderate pulmonary hypertension with an estimated PAP of 62mmHg. Pulmonic Valve The pulmonary valve is normal in structure. Mild to moderate pulmonic regurgitation. Great Vessels The aortic root is normal in size. Ascending aorta is not well visualized. IVC is normal in size and collapses >50% with inspiration. Pericardium There is no pericardial effusion. Lleft pleural effusion noted. <Conclusion> The left ventricle is normal size. LVEF is 30-35%. [facility] [email or web address] [address] 2 D/M-MODE ECHOCARDIOGRAM Name: EDUARDO CAVAZOS Room #: 421-P [facility] IN ..#: [id number] Admission: 11/17/16 Attend Phys: Dilan Mckeon, Discharge: Date of : 30 Date of Service: 11/18/16 1554 Report #: [id number] Right ventricle is not well visualized but appears hypokinetic. Left atrium is dilated. Aortic valve is moderately thickened and calcified. Moderate to severe aortic stenosis. Trace aortic regurgitation. Mitral valve leaflets are calcified. Mild mitral annular calcification. Moderate mitral regurgitation. The tricuspid valve is normal in structure. There is mild to moderate tricuspid regurgitation. The right atrial pressure is estimated at 5 mmHg. There is moderate pulmonary hypertension with an estimated PAP of 62mmHg. Mild to moderate pulmonic regurgitation. <ELECTRONICALLY SIGNED> By: Ahsan Hernandez MD 11/18/16 1554 1554 1554 Ahsan Hernandez MD /INF
--- NOTE | ~2016-11-17 | HC ---
[facility] [place] [address] CONSULTATION Name: EDUARDO CAVAZOS Room #: 421-P ADM IN M.R.#: [id number] Admission: 11/17/16 Attend Phys: Dilan Mckeon DO Discharge: Date of : 30 Report #: [id number] THIS REPORT FOR: //name// CC: Dilan Mendoza REASON FOR CONSULTATION: I was asked to evaluate concerning pneumonia in the setting of C. difficile colitis. HISTORY OF PRESENT ILLNESS: The patient was discharged from the hospital with aspiration pneumonia on 11/04/2016. She has had a PEG tube placed. She returns now with increased shortness of breath, lethargy, gross hematuria from her Barkley catheter. She remains on enteral vancomycin. She was to have a fecal transplant performed tomorrow. Cough has been persistent with brown sputum. She continues to have diarrhea. Chest x-ray has shown increased left lower lobe consolidation. ALLERGIES: ROXIE INHIBITORS, MORPHINE, RED DYE, SULFA, THIAZIDE, ANGIOTENSIN RECEPTOR BLOCKERS, and LOOP DIURETICS. PAST MEDICAL HISTORY: Dementia, hypertension, atrial fibrillation, DVT and GI bleed. FAMILY HISTORY: Noncontributory. SOCIAL HISTORY: She is . Nonsmoker. No significant alcohol intake. Has been in the [facility]. REVIEW OF SYSTEMS: The patient is unable to give any details of her review of systems. PHYSICAL EXAMINATION: VITAL SIGNS: Temperature was 99.7, pulse 108, blood pressure 150/90. GENERAL: She would awake, but was noncommunicating, otherwise. She had a very loose productive cough. She would not expectorate. She is on 2 liters of oxygen per nasal cannula. She was very weak. 1+ peripheral edema. MOUTH: Unremarkable. NECK: Supple. LUNGS: Coarse bilaterally with consolidation of left base. HEART: Regular, without murmur. ABDOMEN: Soft, nontender, no hepatosplenomegaly or mass. EXTREMITIES: Otherwise unremarkable. LABORATORY STUDIES: Troponin 0.9, lactate 1. Sodium 141, potassium 3.9, bicarbonate 29, creatinine 0.7. Liver function tests normal. Albumin at 2.8. Hemoglobin 9.6, white count 9.2, and platelet count was 372,000. Differential unremarkable. Electrocardiogram, sinus tach, LVH, Q-waves present, T-waves have [address] [address] CONSULTATION Name: EDUARDO CAVAZOS Room #: 421-P ADM IN M.R.#: [id number] Admission: 11/17/16 Attend Phys: Dilan Mckeon DO Discharge: Date of : 30 Report #: [id number] resolved. Chest x-ray, increased consolidation of left base, small left pleural effusion. BNP 12,000. IMPRESSION: An 86-year-old with recurring aspiration pneumonia, congestive heart failure likely component also. This is in the setting of Clostridium difficile colitis. Recommend continuing IV antibiotic therapy. We will hold on fecal transplant right now. Obtain sputum culture, blood cultures, aspiration precautions, diuresis, and followup chest x-ray. <ELECTRONICALLY SIGNED> By: Ever Harris MD 11/18/16 1640 1958 0933 Ever Harris MD /nt
--- NOTE | ~2016-11-17 | HC ---
[facility] [place] [address] CONSULTATION Name: EDUARDO CAVAZOS Room #: 421-P [facility] IN M.R.#: [id number] Admission: 11/17/16 Attend Phys: Dilan Mckeon DO Discharge: 11/19/16 Date of : 30 Report #: [id number] THIS REPORT FOR: //name// CC: Joey Mendoza REASON FOR CONSULTATION: Acute congestive heart failure. HISTORY OF PRESENT ILLNESS: The patient is an 86-year-old female who I saw back in July when she presented with new onset AFib. She has had a prior echocardiogram showing preserved ejection fraction with evidence of moderate to moderately severe aortic stenosis. She was brought to the Emergency Room with progressive shortness of breath. REVIEW OF SYSTEMS: Unable to obtain due to advanced dementia. PAST MEDICAL HISTORY: 1. Atrial fibrillation, on rate control and warfarin therapy. 2. Hypertension. 3. Dementia. 4. Hyperlipidemia. 5. Prior UTI. 6. Prior CVA. 7. Echocardiogram: EF of 60-65% with a mean aortic valve gradient of 37 mmHg. SOCIAL HISTORY: Lives in a fpc, does not smoke. FAMILY HISTORY: Noncontributory. ALLERGIES: Multiple and include ROXIE INHIBITOR, MORPHINE, SULFA and THIAZIDE DIURETICS. HOME MEDICATIONS: Include diltiazem 180 a day, ipratropium, atorvastatin 20, clonidine 0.3 mg twice a day, amantadine, Tylenol, Aricept and warfarin. PHYSICAL EXAMINATION: VITAL SIGNS: Temperature is 37.0, pulse 110, respiration 17, blood pressure 151/88, sats 95%. GENERAL: No acute distress. She is alert to person, but not place or time. HEENT: Oropharynx is clear. Mucous membranes are moist. Sclerae are anicteric. NECK: Supple, with no thyromegaly or carotid bruits. HEART: Regular rate and rhythm with a 2/6 systolic murmur heard best at the right upper sternal border. The patient does have elevated jugular venous pressure and positive hepatojugular reflex. LUNGS: There is rhonchi throughout, some fine crackles at the bases. ABDOMEN: Soft, nontender, nondistended with no hepatosplenomegaly. [facility] [address] [place] [address] CONSULTATION Name: EDUARDO CAVAZOS Room #: 421-P [facility] IN ..#: [id number] Admission: 11/17/16 Attend Phys: Dilan Mckeon DO Discharge: 11/19/16 Date of : 30 Report #: [id number] EXTREMITIES: There is no clubbing, cyanosis or edema. NEUROLOGIC: Cranial nerves 2-12 are intact. LABORATORY DATA: White count 9.2, hemoglobin 9.6, platelets 372. INR 3.3. Sodium 141, potassium 3.9, BUN 16, creatinine 0.7, magnesium 1.9. AST, ALT, alkaline phosphatase are normal. Troponin is normal at 0.09 and her proBNP is 12,373. The patient's 12-lead EKGs, I have reviewed and they show sinus tachycardia with LVH and no ischemic changes. Her chest x-ray shows possible recurrent pneumonia with a small effusion. ASSESSMENT AND PLAN: In summary, the patient is an 86-year-old with a known history of xzaggfiw-jw-ysfugz aortic stenosis with preserved EF and atrial fibrillation who presents with increased shortness of breath with evidence of some volume overload on physical exam and an elevated proBNP of 12,373. As such, it appears she has some diastolic dysfunction likely related to her known aortic stenosis. In terms of managing this, I recommend that we perform some light IV diuresis. I recommend that we resume her home dose of diltiazem. She is not an ROXIE or ARB candidate as she has allergies to these. In terms of her aortic stenosis, we will continue with medical management for this. In terms of her atrial fibrillation, she remains in sinus rhythm. We should continue with diltiazem. We can continue with anticoagulation. <ELECTRONICALLY SIGNED> By: Mahesh Zaman MD 11/21/16 1524 1516 0140 Mahesh Zaman MD /nt
[2016-11-17 10:11] VITALS: BP 164/104
[~2016-11-17 10:11] MED LIST changes: +DOXYCYCLINE 10100 MG PO; +PROTONIX40 M1 PO
[2016-11-17] MEDS ORDERED: ARICEPT10 M1 PO (10:17)
[2016-11-17] MEDS ORDERED: DILTIAZEM 24HR360 M1 PO (10:19)
[2016-11-17] MEDS ORDERED: JANTOVEN10 MG PO (10:20)
[2016-11-17 11:06] LABS: ABSOLUTE NEUTROPHILS 7.4 thou/uL (1.4-8.2); BASOPHILS 0.6 % (0.0-2.0); HEMATOCRIT 30.2 % (37.0-47.0); HEMOGLOBIN 9.6 gm/dL (12.0-15.0); LYMPHOCYTES 13.9 % (24.0-44.0); MANUAL DIFF NO; MCH 24.5 pg (26.0-34.0); MCHC 31.8 g/dL (28.0-37.0); MCV 76.8 fL (80.0-100.0); MONOCYTES 4.6 % (1.0-8.0); PLATELET COUNT 372 thou/uL (150-400); POLYS 80.9 % (36.0-66.0); RBC 3.93 mil/uL (4.20-5.00); RDW 16.6 % (10.5-14.5); WBC 9.2 thou/uL (4.0-11.0)
[2016-11-17 11:15] LABS: CALCIUM 9.2 mg/dL (8.5-10.1); CREATININE 0.7 mg/dL (0.6-1.0); POTASSIUM 3.9 mmol/L (3.5-5.1)
[2016-11-17 11:20] LABS: APTT 37.9 Seconds (24.5-32.8); INR 3.3
[2016-11-17 11:39] LABS: ALBUMIN 2.8 g/dL (3.4-5.0); CK-MB MASS 1.6 ng/mL (<0.5-3.6); MAGNESIUM 1.9 mg/dL (1.8-2.4); TOTAL BILIRUBIN 0.6 mg/dL (<0.1-1.0); TOTAL PROTEIN 7.8 g/dL (6.4-8.2); TROPONIN-I 0.09 ng/mL (<0.04-0.07)
[2016-11-17] MEDS ORDERED: DILTIAZEM 24HR180 M2 PO (13:58)
[2016-11-17] MEDS ORDERED: DUONEB 2.5-0.5 M3 ML INH (14:02)
[2016-11-17 14:05] VITALS: BP 151/88
[2016-11-17 16:07] VITALS: BP 150/90
[2016-11-17 23:30] VITALS: BP 173/99
[2016-11-18 04:54] VITALS: BP 169/83
[2016-11-18 05:38] LABS: ABSOLUTE NEUTROPHILS 4.3 thou/uL (1.4-8.2); BASOPHILS 0.3 % (0.0-2.0); EOSINOPHILS 0.1 % (0.0-3.0); HEMATOCRIT 29.6 % (37.0-47.0); HEMOGLOBIN 9.5 gm/dL (12.0-15.0); LYMPHOCYTES 13.9 % (24.0-44.0); MCH 24.6 pg (26.0-34.0); MONOCYTES 1.1 % (1.0-8.0); PLATELET COUNT 364 thou/uL (150-400); POLYS 84.6 % (36.0-66.0); RBC 3.84 mil/uL (4.20-5.00); WBC 5.1 thou/uL (4.0-11.0)
[2016-11-18 05:45] LABS: MANUAL DIFF NO
[2016-11-18 05:48] LABS: PROTIME 31.3 Seconds (9.3-11.4)
[2016-11-18 06:07] LABS: CALCIUM 9.2 mg/dL (8.5-10.1); MAGNESIUM 2.1 mg/dL (1.8-2.4); POTASSIUM 3.9 mmol/L (3.5-5.1)
[2016-11-18 07:58] VITALS: BP 170/107
[2016-11-18 20:00] VITALS: BP 169/89
[2016-11-19 04:32] VITALS: BP 141/77
[2016-11-19 07:27] VITALS: BP 125/72
[2016-11-19] MEDS ORDERED: AUGMENTIN 875875 MG PO (11:28)
[2016-11-19] MEDS ORDERED: VANCOMYCIN125 MG/2.1 PO (11:30)
== END 2016-11-19 17:39 | DRG 177 ==
LOC: ER 10:11 → 4E 11:30 → EROBS 11:30 → 3N 13:30 → 4E 13:45
PROVIDERS: Emergency Medicine; Nurse Practitioner
DX: J69.0 Pneumonitis due to inhalation of food and vomit (principal); J96.20 Acute and chronic respiratory failure, unspecified whether with hypoxia or hypercapnia; I50.33 Acute on chronic diastolic (congestive) heart failure; A04.7 Enterocolitis due to Clostridium difficile; E46 Unspecified protein-calorie malnutrition; E44.0 Moderate protein-calorie malnutrition; I35.0 Nonrheumatic aortic (valve) stenosis; R31.9 Hematuria, unspecified; I11.0 Hypertensive heart disease with heart failure; R13.10 Dysphagia, unspecified; F03.90 Unspecified dementia, unspecified severity, without behavioral disturbance, psychotic disturbance, mood disturbance, and anxiety; E78.5 Hyperlipidemia, unspecified; I48.91 Unspecified atrial fibrillation; Z88.8 Allergy status to other drugs, medicaments and biological substances; Z88.6 Allergy status to analgesic agent; Z88.2 Allergy status to sulfonamides; Z86.73 Personal history of transient ischemic attack (TIA), and cerebral infarction without residual deficits; Z91.041 Radiographic dye allergy status; Z86.718 Personal history of other venous thrombosis and embolism; Z68.23 Body mass index [BMI] 23.0-23.9, adult; Z79.899 Other long term (current) drug therapy; Z93.1 Gastrostomy status; Z66 Do not resuscitate; E87.70 Fluid overload, unspecified
CPT/HCPCS: 10183

== ENCOUNTER 2016-12-03 08:10 | Observation (INO) | payer OTHER ==
[~2016-12-03] VITALS: Ht 180.3 cm; Wt 83.0 kg
[~2016-12-03 08:10] MED LIST changes: +ARICEPT10 M1 PO; +AUGMENTIN 875875 MG PO; +DILTIAZEM 24HR180 M2 PO; +DILTIAZEM 24HR360 M1 PO; +DUONEB 2.5-0.5 M3 ML INH; +JANTOVEN10 MG PO; +VANCOMYCIN125 MG/2.1 PO
[2016-12-03 08:45] VITALS: BP 156/128
[2016-12-03 15:39] LABS: ABSOLUTE NEUTROPHILS 5.9 thou/uL (1.4-8.2); BASOPHILS 0.6 % (0.0-2.0); EOSINOPHILS 1.2 % (0.0-3.0); HEMATOCRIT 27.6 % (37.0-47.0); HEMOGLOBIN 8.9 gm/dL (12.0-15.0); LYMPHOCYTES 14.3 % (24.0-44.0); MCH 23.7 pg (26.0-34.0); MCHC 32.1 g/dL (28.0-37.0); MCV 73.8 fL (80.0-100.0); MONOCYTES 4.2 % (1.0-8.0); PLATELET COUNT 346 thou/uL (150-400); POLYS 79.7 % (36.0-66.0); RBC 3.73 mil/uL (4.20-5.00); RDW 17.6 % (10.5-14.5); WBC 7.4 thou/uL (4.0-11.0)
[2016-12-03 15:43] LABS: MANUAL DIFF NO
[2016-12-03 15:53] LABS: CALCIUM 9.2 mg/dL (8.5-10.1); CREATININE 0.7 mg/dL (0.6-1.0); POTASSIUM 4.1 mmol/L (3.5-5.1)
[2016-12-03 16:00] LABS: INR 1.7; PROTIME 17.6 Seconds (9.3-11.4)
[2016-12-03 16:33] VITALS: BP 137/96
== END 2016-12-03 18:03 ==
LOC: 4N 08:10
PROVIDERS: Nurse Practitioner
DX: A04.7 Enterocolitis due to Clostridium difficile (principal); I10 Essential (primary) hypertension; F03.90 Unspecified dementia, unspecified severity, without behavioral disturbance, psychotic disturbance, mood disturbance, and anxiety; E78.5 Hyperlipidemia, unspecified; Z79.2 Long term (current) use of antibiotics; Z79.899 Other long term (current) drug therapy
CPT/HCPCS: 27001

== ENCOUNTER 2016-12-13 11:41 | Inpatient (IN) | payer OTHER ==
[~2016-12-13] VITALS: Ht 180.3 cm; Wt 80.8 kg
--- NOTE | ~2016-12-13 | EKG ---
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 : 1930 Requested By: Pollo [place] Order Number: [id number] MD: Kev Montoya Measurements Intervals [place] Rate: 103 P: 27 [place]: 161 QRS: -2 QRSD: 87 T: 160 QT: 349 QTc: 457 Interpretive Statements Sinus tachycardia Left ventricular hypertrophy Nonspecific ST and T-wave abnormality Compared to ECG 11/17/2016 10:57:35 No significant change was found Electronically Signed On 12-14-2016 11:47:04 CDT by Kev Montoya [email or web address] <ELECTRONICALLY SIGNED> By: Kev Montoya MD, [facility] 12/14/16 1147 1151 115 Kev Montoya MD, FAC /EPI
--- NOTE | ~2016-12-13 | HC ---
[facility] [place] [address] CONSULTATION Name: EDUARDO CAVAZOS Room #: 313-P ADM IN M.R.#: [id number] Admission: 12/13/16 Attend Phys: Wicho Zayas MD Discharge: Date of : 30 Report #: [id number] THIS REPORT FOR: //name// CC: Lizy Zayas INFECTIOUS DISEASE CONSULTATION REASON FOR CONSULTATION: I was asked to evaluate the patient concerning possible pneumonia in the setting of recent C. difficile colitis. HISTORY OF PRESENT ILLNESS: The patient is an 86-year-old who I have seen several times in the past, who had had chronic diarrhea, C. difficile positive. She failed multiple courses of vancomycin and approximately 10 days ago underwent a fecal transplant successfully. She has had no further diarrhea reported. She presents now with decreased mental status, hypoxia and bilateral infiltrates. She had a PEG tube in place, which is being used for feeding. No gross aspiration identified. After fluids in the Emergency Room, she did improve. She is now on Zosyn. Minimal cough, no chest pain, no nausea, vomiting or diarrhea. No dysuria. PAST MEDICAL HISTORY: Dementia, hyperlipidemia, hypertension, atrial fibrillation, C. difficile colitis, recurring aspiration pneumonia now with a PEG tube. ALLERGIES: ROXIE INHIBITORS, MORPHINE, RED DYE, SULFA, THIAZIDE, ANGIOTENSIN RECEPTOR BLOCKERS, LOOP DIURETICS. MEDICATIONS: As noted on her MAR including Zosyn and fluconazole. FAMILY HISTORY: Noncontributory. SOCIAL HISTORY: Nonsmoker, no significant alcohol. PHYSICAL EXAMINATION: VITAL SIGNS: She is afebrile, hemodynamically stable. GENERAL: She was alert and cooperative and pleasant, in no acute distress. She was confused. She is on 2 liters of oxygen per nasal cannula. CHEST: Few crackles in the bases bilaterally. HEART: Regular without murmur. HEENT: Unremarkable. ABDOMEN: Soft and nontender. PEG site was unremarkable. EXTREMITIES: Unremarkable. LABORATORY STUDIES: Sodium 143, potassium 4.2, bicarbonate of 33, creatinine 0.9. INR 2.9, Hemoglobin 9, white count 7.3, platelet count 392,000. Blood culture is negative. Urine culture negative except for yeast. Urine culture [facility] [address] [place] [address] CONSULTATION Name: EDUARDO CAVAZOS Room #: 313-P ADM IN M.R.#: [id number] Admission: 12/13/16 Attend Phys: Wicho Zayas MD Discharge: Date of : 30 Report #: [id number] pending room air, gas, pO2 50, pCO2 47, pH 7.37. Chest x-ray, basilar infiltrates greatest on the left. CT scan of the chest showed basilar atelectasis, infiltrates with effusions. These were unchanged from October. IMPRESSION AND PLAN: An 86-year-old with decreased mental status, question whether this is more dehydration or congestive heart failure. She does have persisted basilar changes on her CT scan. I do not think we are dealing with an aspiration pneumonia at this time, considering she has had no fever, no leukocytosis and no increased cough. Would recommend obtaining a differential on her CBC, check BNP, discontinue antibiotics and observe while hospitalized. The other issue is her recent stool transplant for C. difficile colitis. I would like to avoid any other systemic antibiotics at this point in time if at all possible. We will need to observe closely and will make adjustments according to her response to treatment. <ELECTRONICALLY SIGNED> By: Ever Harris MD 12/15/16 1027 1334 1822 Ever Harris MD /nt
--- NOTE | ~2016-12-13 | HC ---
[facility] [place] [address] CONSULTATION Name: EDUARDO CAVAZOS Room #: 313-P ADM IN M.R.#: [id number] Admission: 12/13/16 Attend Phys: Wicho Zayas MD Discharge: Date of : 30 Report #: [id number] THIS REPORT FOR: //name// CC: Lizy Zayas DATE OF SERVICE: 12/13/2016 REASON FOR CONSULTATION: Elevated troponin (0.11). HISTORY OF PRESENT ILLNESS: The patient is an 86-year-old woman, previously seen by Dr. Mahesh Zaman in October of this year. Her history includes hypertension, diabetes, moderately severe cardiomyopathy and probable severe aortic stenosis. Her history comes from primarily of the transfer records from the custodial and [place] records as she not arousable and not able to give much history. In reviewing her blood work and all troponins that she has had drawn most have been abnormal and none in the diagnostically abnormal range. The highest being 0.14 in 09/2016. She now presents with altered mental status, hypoxemia and wheezing. Chest x-ray suggestive of left basilar infiltrate and effusion, cardiomegaly and mild pulmonary edema. Her echocardiogram from 10/2016 I have reviewed, this demonstrated an ejection fraction of 30-35%, a calcified and moderately to severely stenotic aortic valve and severe pulmonary hypertension. The transaortic gradients were elevated at 59 with a mean gradient of 40. ALLERGIES: Listed include ROXIE INHIBITORS, THIAZIDE, SULFA, MORPHINE and LASIX. MEDICINES: Include diltiazem CD 180 mg daily, DuoNeb, Lipitor 20 mg daily, clonidine 0.3 mg twice daily, Namenda 10 mg twice daily, Aricept 10 mg daily, Diflucan. PAST MEDICAL HISTORY: Medical records have been reviewed and include a history of severe dementia, paroxysmal atrial fibrillation, C. difficile colitis, aortic stenosis, cardiomyopathy, congestive heart failure. SOCIAL HISTORY: She lives at [facility], nonsmoker. FAMILY HISTORY: Not obtainable. REVIEW OF SYSTEMS: Not obtainable. PHYSICAL EXAMINATION: GENERAL: Reveals an elderly woman who is poorly responsive. She will open her eyes but will not communicate. VITAL SIGNS: Blood pressure is 154/100, heart rate of 100, temperature is 98.1 degrees, 5 feet 11 inches tall, [address] [address] CONSULTATION Name: EDUARDO CAVAZOS Room #: [address] [place] [address] IN M.R.#: [id number] Admission: 12/13/16 Attend Phys: Wicho Zayas MD Discharge: Date of : 30 Report #: [id number] HEENT: There are neither xanthelasma, subcutaneous xanthomata, oral mucosal or digital cyanosis or kyphoscoliosis present. CHEST: Reveals diminished breath sounds at both bases, prolonged expiratory phase, diffuse inspiratory and expiratory wheezing. CARDIAC: Reveals distant heart tones. There is regular rate and rhythm with a 2/6 systolic ejection murmur at the base. ABDOMEN: Soft and nontender. EXTREMITIES: Without cyanosis, clubbing or edema. Radial pulses are 2+. NEUROLOGIC: She is severely demented and encephalopathic. LABORATORY DATA: Sodium is 140, potassium 4.3, creatinine 0.7. INR 4.3, hemoglobin 9, white count 7.3, platelet count 392. Chest x-ray as detailed above. EKG sinus tachycardia, should note that she was a no code at the custodial. IMPRESSION: 1. Possible left basilar pneumonia. 2. Congestive heart failure, [id number]-[id number] systolic dysfunction. 3. 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 4. Encephalopathy 5. Hypertension. 6. Paroxysmal atrial fibrillation. 7. Dyslipidemia. 8. Multiple allergies. RECOMMENDATIONS: 1. Her chronically elevated and mildly elevated troponins are not unexpected and consistent with her presentation with hypoxemia, bronchospasm, pulmonary hypertension and cardiomyopathy. I do not suspect a type 1 myocardial infarction or acute coronary syndrome. 2. Resume usual medications. Given her allergies, there are several contraindications to usual treatment for her cardiomyopathy. 3. I doubt she would be a candidate for TAVR or aortic valve replacement given her comorbidities. <ELECTRONICALLY SIGNED> By: Kev Montoya MD, [facility] 12/14/16 1014 1824 39 Kev Montoya MD, [facility] /nt
--- NOTE | ~2016-12-13 | HC ---
[facility] [place] [address] CONSULTATION Name: EDUARDO CAVAZOS Room #: 313-P ADM IN M.R.#: [id number] Admission: 12/13/16 Attend Phys: Wicho Zayas MD Discharge: Date of : 30 Report #: [id number] THIS REPORT FOR: //name// CC: Lizy Zayas MD DATE OF SERVICE: 12/13/2016 REFERRING PROVIDER: Dr. Wicho Zayas. REASON FOR CONSULTATION: Pulmonary infiltrate, no effusion. CHIEF COMPLAINT: Altered mental status. HISTORY OF PRESENT ILLNESS: Our group was asked to see the patient in consultation while hospitalized at [facility], seen on the floor in room 313 at the request of Dr. Zayas. No family immediately available to give history. History taken from discussion with healthcare providers and review of records. An 86-year-old woman has had difficulty with recurrent left pleural effusion, recently hospitalized with problems associated with C. difficile colitis and probable pneumonia, was just recently discharged 12/03/2016 to a long-term care facility, but has had multiple admissions this year, represented to the Emergency Department with altered mental status earlier today, required supplemental oxygen. There was some concern the patient may have lower lobe pneumonia on the left where a prior infiltrate and effusion has been, unable to get any further history from the patient, currently is arousable and verbal, but confused. ALLERGIES: ROXIE INHIBITOR, THIAZIDE, SULFA, MORPHINE AND RED DYE. PAST MEDICAL HISTORY: 1. Hypertension. 2. Dementia. 3. Hyperlipidemia. 4. History of atrial fibrillation. 5. Recent history of Clostridium difficile colitis. 6. Recent urinary tract infection. 7. Recent pneumonia. 8. History of left pleural effusion. SOCIAL HISTORY: Unobtainable from the patient. FAMILY HISTORY: Unobtainable from the patient. REVIEW OF SYSTEMS: Unobtainable from the patient at this time. [facility] [address] [place] [address] CONSULTATION Name: EDUARDO CAVAZOS Room #: 313-P [facility] IN ..#: [id number] Admission: 12/13/16 Attend Phys: Wicho Zayas MD Discharge: Date of : 30 Report #: [id number] PHYSICAL EXAMINATION: VITAL SIGNS: Afebrile, pulse 90s, respiratory rate 20, blood pressure 136/82, oxygen saturation 100% on 2 liters nasal cannula. GENERAL: This is an elderly woman, arousable, but confused. ENT: Not cooperative with review of oropharynx. NECK: Supple, no lymphadenopathy. LUNGS: Diminished in the left base, but otherwise clear. No wheezes or crackles. CARDIOVASCULAR: Heart was regular. No murmurs noted. ABDOMEN: Soft, nontender, no masses, no hepatosplenomegaly. EXTREMITIES: With no significant edema. LABORATORY DATA: Chest x-ray reveals stable left basilar infiltrate and effusion. Chemistry profile within reasonable limits except for an elevated glucose of 162, the liver enzymes profile was performed, troponin mildly elevated at 0.11. CBC revealed a white blood cell count is 7000, hemoglobin 9, hematocrit 28 and platelet count of 392, a low MCV is noted. Arterial blood gas done on room air revealed pH 7.37, pCO2 of 48, pO2 of 59, bicarbonate 27. IMPRESSION: 1. Altered mental status, unclear etiology. The patient has had multiple infections in the past be worried about an acute infectious process, pneumonia seems possible; however, I do not think there has been a significant change in x-ray. Be very cautious with broad-spectrum antimicrobials for healthcare-associated pneumonia given her recent difficulties with Clostridium difficile colitis. 2. Left basilar infiltrate, no effusion. This appears to be a chronic pleural effusions. Suggest repeat imaging with CT of the chest to further evaluate lower extremity Dopplers are negative for any above the knee DVT; however, below the knee thrombosis may be present. 3. Anemia, microcytic, appears to be chronic, uncertain of the etiology. 4. Elevated troponin. 5. History of cardiomyopathy, ejection fraction 35%, most recent echo. RECOMMENDATIONS: 1. Consult Infectious Disease regarding antibiotics given the complex nature of infections. 2. CT of the chest. 3. Continuous oximetry. 4. Critical care telemetry monitoring. 5. I see no strong indication for bronchodilators at present, but would continue with four times daily DuoNebs for now. 6. Cardiology consultation noted. 7. Diuresis as tolerated. 8. Further recommendations to follow. [address] [address] CONSULTATION Name: EDUARDO CAVAZOS Room #: 313-P ADM IN M.R.#: [id number] Admission: 12/13/16 Attend Phys: Wicho Zayas MD Discharge: Date of : 30 Report #: [id number] Thank you for requesting our suggestions. <ELECTRONICALLY SIGNED> By: Morris Salmon MD 12/15/16 1454 2026 0157 Morris Salmon MD /nt
[2016-12-13 11:41] VITALS: BP 165/78
[2016-12-13 12:16] LABS: HEMATOCRIT 28.4 % (37.0-47.0); MCH 23.5 pg (26.0-34.0); MCHC 31.8 g/dL (28.0-37.0); MCV 73.9 fL (80.0-100.0); RBC 3.85 mil/uL (4.20-5.00); RDW 17.5 % (10.5-14.5); WBC 7.3 thou/uL (4.0-11.0)
[2016-12-13 12:23] LABS: CALCIUM 8.8 mg/dL (8.5-10.1); CREATININE 0.7 mg/dL (0.6-1.0); POTASSIUM 4.3 mmol/L (3.5-5.1)
[2016-12-13] MEDS ORDERED: DIFLUCAN200 MG PO (12:26)
[2016-12-13 12:27] LABS: ABG SAMPLE TYPE ARTERIAL; BE(vivo) 1.4 mmol/L (-2 to +3); LACTATE 1.27 mmol/L (0.5-2.0); O2(CT) 11.9 mL/dL (15.0-23.0); O2Hb 85.9 % (92.0-98.0); PCO2 47.5 mmHg (35.0-45.0); PO2 58.9 mmHg (80.0-100.0); pH 7.373 (7.360-7.450); sO2 89.7 % (92.0-98.0); tCO2 28.5 mmol/L (24.0-30.0)
[2016-12-13 12:28] LABS: STICK SITE R.RADIAL
[2016-12-13] MEDS ORDERED: ROBITUSSIN100 MG/53 PER TUBE (12:28)
[2016-12-13] MEDS ORDERED: BAZA CR.1 E1 TP (12:29)
[2016-12-13 12:30] LABS: APTT 39.4 Seconds (24.5-32.8); INR 4.3; PROTIME 44.2 Seconds (9.3-11.4)
[2016-12-13 12:31] LABS: TROPONIN-I 0.11 ng/mL (<0.04-0.07)
[2016-12-13 15:17] VITALS: BP 154/103
[2016-12-13 15:27] LABS: URINE BILIRUBIN NEGATIVE (Negative); URINE BLOOD 1+ (Negative); URINE COLOR YELLOW; URINE GLUCOSE-RANDOM* NEGATIVE (Negative); URINE KETONES NEGATIVE (Negative); URINE LEUKOCYTES-REFLEX 1+ (Negative); URINE PROTEIN (DIPSTICK) 1+ (Negative); URINE UROBILINOGEN 0.2 E.U./dl (0.2-1.0)
[2016-12-13 15:31] LABS: CASTS None Seen /LPF (None Seen); SQUAMOUS 0-3 Few /LPF (0-3); URINE RBC 0-2 Rare /HPF (0-2); URINE WBC-REFLEX 6-15 Few /HPF (0-5)
[2016-12-13 15:32] LABS: YEAST-REFLEX Present (None Seen)
[2016-12-13 15:33] LABS: CRYSTALS None Seen /LPF (None Seen)
[2016-12-13 19:08] VITALS: BP 128/69
[2016-12-14 03:09] VITALS: BP 122/71
[2016-12-14 05:41] LABS: CALCIUM 9.2 mg/dL (8.5-10.1); CREATININE 0.9 mg/dL (0.6-1.0); POTASSIUM 4.2 mmol/L (3.5-5.1)
[2016-12-14 08:15] VITALS: BP 119/63
[2016-12-14 10:02] LABS: INR 2.9; PROTIME 29.9 Seconds (9.3-11.4)
[2016-12-14 14:45] VITALS: BP 119/63
[2016-12-14 15:54] LABS: ABSOLUTE NEUTROPHILS 3.9 thou/uL (1.4-8.2); BASOPHILS 1.4 % (0.0-2.0); EOSINOPHILS 0.7 % (0.0-3.0); HEMATOCRIT 31.5 % (37.0-47.0); HEMOGLOBIN 9.8 gm/dL (12.0-15.0); LYMPHOCYTES 18.3 % (24.0-44.0); MCH 23.8 pg (26.0-34.0); MCHC 31.2 g/dL (28.0-37.0); MCV 76.2 fL (80.0-100.0); MONOCYTES 7.6 % (1.0-8.0); PLATELET COUNT 336 thou/uL (150-400); RBC 4.14 mil/uL (4.20-5.00); RDW 17.3 % (10.5-14.5); WBC 5.5 thou/uL (4.0-11.0)
[2016-12-14 16:01] LABS: MANUAL DIFF NO
[2016-12-14 20:00] VITALS: BP 132/61
[2016-12-15 04:00] VITALS: BP 140/79
[2016-12-15 05:23] LABS: EOSINOPHILS 0.6 % (0.0-3.0); HEMATOCRIT 27.1 % (37.0-47.0); HEMOGLOBIN 8.4 gm/dL (12.0-15.0); MCH 22.6 pg (26.0-34.0); MCHC 30.9 g/dL (28.0-37.0); MCV 73.2 fL (80.0-100.0); MONOCYTES 6.9 % (1.0-8.0); PLATELET COUNT 324 thou/uL (150-400); POLYS 69.5 % (36.0-66.0); RDW 17.3 % (10.5-14.5); WBC 5.8 thou/uL (4.0-11.0)
[2016-12-15 05:27] LABS: MANUAL DIFF NO; POTASSIUM 3.9 mmol/L (3.5-5.1)
[2016-12-15 05:31] LABS: INR 2.6; PROTIME 26.8 Seconds (9.3-11.4)
[2016-12-15 08:05] VITALS: BP 135/74
[2016-12-15] MEDS ORDERED: TORSEMIDE20 MG PO (09:40)
[2016-12-15 16:07] VITALS: BP 129/55
[2016-12-15 20:40] VITALS: BP 121/78
[2016-12-16 05:30] VITALS: BP 113/61
[2016-12-16 08:38] VITALS: BP 134/71
[2016-12-16 18:01] VITALS: BP 131/70
[2016-12-16 20:00] VITALS: BP 146/79
[2016-12-17 04:00] VITALS: BP 134/79
[2016-12-17 07:40] VITALS: BP 139/79
[2016-12-17] MEDS ORDERED: COUMADIN 5 MG TA5 M1 PO (11:31)
[2016-12-17 15:29] VITALS: BP 131/75
== END 2016-12-17 18:15 | DRG 291 ==
LOC: ER 11:41 → 3N 13:09 → EROBS 13:09 → 3N 15:53
PROVIDERS: Emergency Medicine; Hospitalist; Internal Medicine Endocrinology, Diabetes & Metabolism; Specialist
PROC: 02HV33Z Insertion of Infusion Device into Superior Vena Cava, Percutaneous Approach (ICD-10-PCS; principal; 2016-12-14)
DX: I50.23 Acute on chronic systolic (congestive) heart failure (principal); J18.9 Pneumonia, unspecified organism; J96.01 Acute respiratory failure with hypoxia; G93.40 Encephalopathy, unspecified; R65.11 Systemic inflammatory response syndrome (SIRS) of non-infectious origin with acute organ dysfunction; N39.0 Urinary tract infection, site not specified; R78.81 Bacteremia; I42.9 Cardiomyopathy, unspecified; I11.0 Hypertensive heart disease with heart failure; F03.90 Unspecified dementia, unspecified severity, without behavioral disturbance, psychotic disturbance, mood disturbance, and anxiety; E78.5 Hyperlipidemia, unspecified; I48.0 Paroxysmal atrial fibrillation; I35.0 Nonrheumatic aortic (valve) stenosis; D64.9 Anemia, unspecified; E11.9 Type 2 diabetes mellitus without complications; I27.2 Other secondary pulmonary hypertension; Z94.89 Other transplanted organ and tissue status; Z88.6 Allergy status to analgesic agent; Z79.899 Other long term (current) drug therapy; Z88.2 Allergy status to sulfonamides; Z88.8 Allergy status to other drugs, medicaments and biological substances; Z91.041 Radiographic dye allergy status
CPT/HCPCS: 10096

== ENCOUNTER 2017-02-14 09:56 | Inpatient (IN) | payer OTHER ==
[~2017-02-14] VITALS: Ht 172.7 cm; Wt 96.3 kg
--- NOTE | ~2017-02-14 | EKG ---
[address] [address] ELECTROCARDIOGRAM REPORT Name: EDUARDO CAVAZOS Room #: 217-P ADM IN M.R.#: [id number] Admission: 02/14/17 Attend Phys: Akin Dacosta MD Discharge: Date of : 30 Report #: [id number] THIS REPORT FOR: //name// [facility] Test Date: 2017-02-17 Test Time: 11:07:11 Pat Name: EDUARDO CAVAZOS Department: Room: [facility] Gender: F [place] Operator: Chino WOLFE : 1930 Requested By: Akin Dacosta Order Number: [id number] MD: Kev Montoya Measurements Intervals [place] Rate: 157 P: ID: QRS: 33 QRSD: 82 T: 216 QT: 268 QTc: 434 Interpretive Statements Atrial fibrillation with rapid V-rate LVH with secondary repolarization abnormality Compared to ECG 02/14/2017 10:01:57 Early repolarization now present Sinus tachycardia no longer present Electronically Signed On 02-18-2017 7:51:15 CDT by Kev Montoya [email or web address] <ELECTRONICALLY SIGNED> By: Kev Montoya MD, [facility] 02/18/17 0751 1107 110 Kev Montoya MD, [facility] /EPI
--- NOTE | ~2017-02-14 | EKG ---
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 : 1930 Requested By: Mahesh Zaman Order Number: [id number] MD: Kev Montoya Measurements Intervals [place] Rate: 135 P: IN: QRS: 26 QRSD: 84 T: 238 QT: 297 QTc: 446 Interpretive Statements Atrial flutter/fibrillation Repolarization abnormality, prob rate related Poor R wave progression No previous ECGs available for comparison Electronically Signed On 02-25-2017 18:06:30 CDT by Kev Montoya [email or web address] <ELECTRONICALLY SIGNED> By: Kev Montoya MD, [facility] 02/25/17 1806 1125 1125 Kev Montoya MD, [facility] /EPI
--- NOTE | ~2017-02-14 | HC ---
[facility] [place] [address] CONSULTATION Name: EDUARDO CAVAZOS Room #: 217- ADM IN M.R.#: [id number] Admission: 02/14/17 Attend Phys: Akin Dacosta MD Discharge: Date of : 30 Report #: [id number] THIS REPORT FOR: //name// CC: Lizy Dacosta REASON FOR CONSULTATION: I was asked to evaluate concerning urinary tract infection, change in mental status. HISTORY OF PRESENT ILLNESS: According to the emergency room record, she was found with low oxygen saturation and wheezing on day of admission. Placed on BiPAP and given DuoNeb. On initial evaluation, she was tachycardic, afebrile on 3 liters of oxygen per nasal cannula, had bilateral wheezing and rhonchi. Abdomen was soft. Initial laboratory studies noted UA with moderate wbc's, many bacteria. ABG had a pO2 of 206, pCO2 of 55, pH 7.3 on 50% BiPAP. Chest x-ray showed stable cardiomegaly with mild left basilar opacity consistent with atelectasis. Given IV fluids, ceftriaxone and Solu-Medrol. Over the past 48 hours, she has remained afebrile, hemodynamically stable. She is back to her normal level of alertness and dementia. Denies any cough or sputum production. There has been no chest pain. No nausea, vomiting or diarrhea. 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 Since then, she has been stable from gastrointestinal standpoint. PAST MEDICAL HISTORY: Dementia, hypertension, hyperlipidemia, atrial fibrillation, C. difficile colitis, recurrent urinary tract infection. ALLERGIES: ROXIE INHIBITORS, MORPHINE, RED DYE, SULFA, THIAZIDE DIURETICS, , LOOP DIURETICS. FAMILY HISTORY: Noncontributory. SOCIAL HISTORY: Nonsmoker, no significant alcohol intake. REVIEW OF SYSTEMS: As noted above with no back or flank pain. No dysuria. She had no rash or decubiti. PHYSICAL EXAMINATION: VITAL SIGNS: Afebrile, hemodynamically stable. She is alert, cooperative and pleasant, in no acute distress. SKIN: Unremarkable. LYMPH: Unremarkable. HEENT: Unremarkable. NECK: Supple. LUNGS: Few crackles in the left base posteriorly. HEART: Regular. ABDOMEN: Soft, nontender, no hepatosplenomegaly or mass. EXTREMITIES: Unremarkable. Peripheral IV in the right upper extremity. [address] [address] CONSULTATION Name: EDUARDO CAVAZOS Room #: 217-P [facility] IN .R.#: [id number] Admission: 02/14/17 Attend Phys: Akin Dacosta MD Discharge: Date of : 30 Report #: [id number] LABORATORY DATA: Urine culture shows Citrobacter, sensitive to gentamicin, imipenem, nitrofurantoin, Zosyn, Bactrim, tetracycline, tobramycin. Blood cultures are negative. Chest x-ray, atelectasis left base. Creatinine 1.4. BNP 32,000. Hemoglobin 9.7, WBC 9, platelet count 335,000. Urinalysis, urine culture as noted. IMPRESSION: An 86-year-old with change in mental status along with likely component of atelectasis, possibly early congestive heart failure, although she did receive IV fluids and has improved. No definite pneumonia identified. Her oxygen requirements have improved. Urinary tract infection could also be a consideration. No evidence of recurrent Clostridium difficile colitis. PLAN: Recommend continue antibiotics, repeat chest x-ray. We will reassess after repeat chest x-ray. I would like to limit her antibiotic exposure as much as possible. <ELECTRONICALLY SIGNED> By: Ever Harris MD 02/17/17 1426 1357 2211 Ever Harris MD /nt
--- NOTE | ~2017-02-14 | HC ---
[facility] [place] [address] CONSULTATION Name: EDUARDO CAVAZOS Room #: 217- ADM IN M.R.#: [id number] Admission: 02/14/17 Attend Phys: Akin Dacosta MD Discharge: Date of : 30 Report #: [id number] THIS REPORT FOR: //name// CC: Lizy Dacosta DATE OF SERVICE: 02/17/2017 REASON FOR CONSULTATION: AFib. HISTORY OF PRESENT ILLNESS: The patient is an 86-year-old with history of AFib, dementia as well as severe aortic stenosis, EF of 30% to 35%, who presented with increased shortness of breath and low saturations at her care facility. She was admitted on the . Yesterday, she went into atrial fibrillation with rapid ventricular response. She denies any chest pain. She denies any active shortness of breath. She denies PND or orthopnea. She denies presyncope or syncope. REVIEW OF SYSTEMS: A 12-point review of systems was performed and was negative other than what I mentioned above. PAST MEDICAL HISTORY: 1. Dilated cardiomyopathy, EF of 30% to 35%. 2. Severe aortic stenosis. 3. Paroxysmal atrial fibrillation. 4. Hypertension. 5. Dementia. 6. Hyperlipidemia. 7. UTI. 8. Prior CVA. SOCIAL HISTORY: Lives in a care home. FAMILY HISTORY: Noncontributory. ALLERGIES: Include ROXIE and ARB. HOME MEDICATIONS: Include , atorvastatin, clonidine, donepezil, guaifenesin, warfarin and famotidine. PHYSICAL EXAMINATION: VITAL SIGNS: Temperature was 36.4, pulse was in the 150s, blood pressure was 149/89, sats 96%. GENERAL: She is alert and she is eating. She is in no acute distress. HEENT: Oropharynx clear. Sclerae anicteric. NECK: Supple, no thyromegaly. [facility] [address] [place] [address] CONSULTATION Name: EDUARDO CAVAZOS Room #: 217-P [facility] IN [facility]#: [id number] Admission: 02/14/17 Attend Phys: Akin Dacosta MD Discharge: Date of : 30 Report #: [id number] HEART: Tachycardic and irregularly irregular. She has a 2/6 systolic murmur heard at the right upper sternal border. She does not have elevated jugular venous pressure. LUNGS: Clear to auscultation bilaterally. ABDOMEN: Soft, nontender, nondistended. EXTREMITIES: There is no clubbing, cyanosis, edema. NEUROLOGICAL: Cranial nerves 2-12 were intact. Chest x-ray with no acute process. LABORATORY DATA: White count 11.5, hemoglobin 9.8, platelets are 356. Blood gas on admission pH 7.3, pCO2 of 55, pO2 of 206. Chemistries: Sodium was 145, potassium 3.8, creatinine 1.4. Troponin was 0.16 and a proBNP was 32,000. Her EKG showed atrial fibrillation/atrial flutter with rapid ventricular response. ASSESSMENT: 1. Atrial fibrillation/atrial flutter with rapid ventricular response. 2. Hypercoagulable state. 3. Elevated troponin. 4. Acute on chronic systolic heart failure. 5. Severe aortic stenosis. 6. Hypertension. 7. Dementia. 8. Hyperlipidemia. 9. Prior cerebrovascular accident. In summary, the patient is an 86-year-old with a history of congestive heart failure, severe aortic stenosis and atrial fibrillation. In terms of her atrial fibrillation, we will continue with the diltiazem drip and I will load her with IV digoxin. I will also start her on p.o. amiodarone 400 mg t.i.d. She will need to be on amiodarone lifelong. We can continue with warfarin therapy. In terms of her acute on chronic systolic heart failure, she has elevated BNP. It appears that her hypoxemia was likely the result of congestive heart failure. We will continue to optimize her medications. Of note, she is not an ROXIE or ARB candidate due to allergies. She has been intolerant of beta blockers in the past; therefore, she is on low dose diltiazem. In terms of her elevated troponin, this is likely related to congestive heart failure and is not due to myocardial infarction and with regards to her aortic stenosis, we will continue with conservative management of this. We will continue to follow. <ELECTRONICALLY SIGNED> By: Mahesh Zaman MD 02/18/17 1126 0830 0910 Mahesh Zaman MD /nt
--- NOTE | ~2017-02-14 | EKG ---
[address] [place] [address] ELECTROCARDIOGRAM REPORT Name: EDUARDO CAVAZOS Room #: 217-P ADM IN M.R.#: [id number] Admission: 02/14/17 Attend Phys: Akin Dacosta MD Discharge: Date of : 30 Report #: [id number] THIS REPORT FOR: //name// [facility] Test Date: 2017-02-19 Test Time: 17:01:36 Pat Name: EDUARDO CAVAZOS Department: Room: 217 Gender: F [place] Seamer: Levi MOSES : 1930 Requested By: Mahesh Zaman Order Number: [id number] MD: Kev Montoya Measurements Intervals [place] Rate: 124 P: 204 NE: 285 QRS: 10 QRSD: 78 T: 191 QT: 332 QTc: 477 Interpretive Statements Sinus or ectopic atrial tachycardia Prolonged NE interval Probable LVH with secondary repol abnrm Poor R wave progression Compared to ECG 02/17/2017 11:07:11 Atrial fibrillation no longer present Electronically Signed On 02-23-2017 8:24:39 CDT by Kev Montoya [email or web address] <ELECTRONICALLY SIGNED> By: Kev Montoya MD, [facility] 02/23/17 0824 1701 1701 Kev Montoya MD, [facility] /EPI
--- NOTE | ~2017-02-14 | EKG ---
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 : 1930 Requested By: Barby Hednrix Order Number: [id number] MD: Kev Montoya Measurements Intervals [place] Rate: 103 P: 48 GA: 153 QRS: 9 QRSD: 84 T: 259 QT: 338 QTc: 443 Interpretive Statements Sinus tachycardia Probable left atrial enlargement Left ventricular hypertrophy Nonspecific T abnormalities, lateral leads Baseline wander in lead(s) V5 Compared to ECG 12/13/2016 11:51:53 No significant change was found Electronically Signed On 02-15-2017 10:54:17 CDT by Kev Montoya [email or web address] <ELECTRONICALLY SIGNED> By: Kev Montoya MD, FACC 02/15/17 1054 1001 1001 Kev Montoya MD, [facility] /EPI
[~2017-02-14 09:56] MED LIST changes: +BAZA CR.1 E1 TP; +COUMADIN 5 MG TA5 M1 PO; +DIFLUCAN200 MG PO; +ROBITUSSIN100 MG/53 PER TUBE; +TORSEMIDE20 MG PO
[2017-02-14 09:58] VITALS: BP 143/116
[2017-02-14 10:30] LABS: ABG SAMPLE TYPE ARTERIAL; BE(vivo) 5.3 mmol/L (-2 to +3); HCO3 31.7 mmol/L (22.0-26.0); LACTATE 1.73 mmol/L (0.5-2.0); O2(CT) 15.2 mL/dL (15.0-23.0); O2Hb 97.9 % (92.0-98.0); PCO2 55.8 mmHg (35.0-45.0); PO2 206.9 mmHg (80.0-100.0); STICK SITE L.BRACHIAL; pH 7.372 (7.360-7.450); sO2 99.4 % (92.0-98.0); tCO2 33.4 mmol/L (24.0-30.0)
[2017-02-14 10:31] LABS: Pressure Support 12 cm H20; VDS BIPAP SPONT TIMED cc
[2017-02-14] MEDS ORDERED: COUMADIN7.5 MG PO (10:48)
[2017-02-14 11:08] LABS: HEMATOCRIT 31.5 % (37.0-47.0); HEMOGLOBIN 9.8 gm/dL (12.0-15.0); MCH 21.9 pg (26.0-34.0); MCHC 30.9 g/dL (28.0-37.0); MCV 70.6 fL (80.0-100.0); PLATELET COUNT 356 thou/uL (150-400); RBC 4.46 mil/uL (4.20-5.00); RDW 24.3 % (10.5-14.5); WBC 11.5 thou/uL (4.0-11.0)
[2017-02-14 11:14] LABS: MANUAL DIFF YES
[2017-02-14 11:17] LABS: CALCIUM 9.1 mg/dL (8.5-10.1); CREATININE 1.3 mg/dL (0.6-1.0); POTASSIUM 3.8 mmol/L (3.5-5.1)
[2017-02-14 11:27] LABS: TROPONIN-I 0.16 ng/mL (<0.04-0.07)
[2017-02-14 12:04] LABS: ABSOLUTE NEUTROPHILS 9.9 thou/uL (1.4-8.2); ANISOCYTOSIS 2+; METAMYELOCYTES 1 %; MICROCYTES SLIGHT; NUCLEATED RBCS 2 /100WBC; OVALOCYTES FEW; POIKILOCYTOSIS 1+; TOTAL CELL COUNT 100
[2017-02-14 12:05] LABS: BURR CELLS FEW; HYPOCHROMASIA 1+; LARGE PLATELETS FEW; POLYCHROMASIA SLIGHT; SCHISTOCYTES OCCASIONAL
[2017-02-14] MEDS ORDERED: PEPCID20 MG PO (12:25)
[2017-02-14 12:58] LABS: URINE BILIRUBIN 1+ (Negative); URINE BLOOD 1+ (Negative); URINE COLOR YELLOW; URINE GLUCOSE-RANDOM* NEGATIVE (Negative); URINE KETONES NEGATIVE (Negative); URINE LEUKOCYTES-REFLEX TRACE (Negative); URINE PROTEIN (DIPSTICK) 3+ (Negative); URINE SPECIFIC GRAVITY >= 1.030 (1.003-1.035)
[2017-02-14 13:00] LABS: ICTOTEST (BILI CONFIRMATORY) Negative (Negative)
[2017-02-14 13:05] LABS: CASTS None Seen /LPF (None Seen); CRYSTALS None Seen /LPF (None Seen); SQUAMOUS None Seen /LPF (0-3)
[2017-02-14 13:06] LABS: FINE GRANULAR CASTS 0-3 Few /LPF (None Seen); HYALINE CASTS 0-3 Few /LPF (None Seen); URINE RBC 0-2 Rare /HPF (0-2)
[2017-02-14 14:05] VITALS: BP 171/110
[2017-02-14 14:50] VITALS: BP 176/90
[2017-02-14 16:00] VITALS: BP 168/84
[2017-02-14 17:00] VITALS: BP 150/63
[2017-02-14 19:39] VITALS: BP 173/95
[2017-02-15 06:32] VITALS: BP 152/88
[2017-02-15 06:55] LABS: HEMOGLOBIN 9.8 gm/dL (12.0-15.0); MCH 22.1 pg (26.0-34.0); MCHC 31.6 g/dL (28.0-37.0); MCV 69.8 fL (80.0-100.0); RBC 4.44 mil/uL (4.20-5.00); RDW 23.5 % (10.5-14.5)
[2017-02-15 07:04] LABS: CALCIUM 8.9 mg/dL (8.5-10.1); CREATININE 1.3 mg/dL (0.6-1.0); POTASSIUM 4.3 mmol/L (3.5-5.1)
[2017-02-15 08:00] VITALS: BP 165/98
[2017-02-15 16:00] VITALS: BP 147/60
[2017-02-15 20:10] VITALS: BP 131/61
[2017-02-16 03:33] VITALS: BP 165/79
[2017-02-16 04:18] LABS: HEMATOCRIT 30.5 % (37.0-47.0); HEMOGLOBIN 9.7 gm/dL (12.0-15.0); MCH 21.9 pg (26.0-34.0); MCHC 31.6 g/dL (28.0-37.0); MCV 69.1 fL (80.0-100.0); RBC 4.42 mil/uL (4.20-5.00); RDW 24.2 % (10.5-14.5)
[2017-02-16 04:29] LABS: CALCIUM 8.5 mg/dL (8.5-10.1); CREATININE 1.4 mg/dL (0.6-1.0); POTASSIUM 3.8 mmol/L (3.5-5.1)
[2017-02-16 08:00] VITALS: BP 164/91
[2017-02-16 16:00] VITALS: BP 127/107
[2017-02-16 21:30] VITALS: BP 145/78
[2017-02-17] VITALS (8 sets, daily range): BP systolic 123–152; BP diastolic 54–118
[2017-02-18 06:00] VITALS: BP 162/80
[2017-02-18 10:34] VITALS: BP 119/84
[2017-02-18 11:48] VITALS: BP 132/81
[2017-02-18 15:14] VITALS: BP 159/78; BP 83/62
[2017-02-18 19:49] VITALS: BP 145/49; BP 176/91
[2017-02-19 02:58] VITALS: BP 152/66
[2017-02-19 06:36] LABS: HEMATOCRIT 32.6 % (37.0-47.0); HEMOGLOBIN 10.1 gm/dL (12.0-15.0); MCH 21.5 pg (26.0-34.0); MCHC 31.1 g/dL (28.0-37.0); MCV 69.3 fL (80.0-100.0); RBC 4.7 mil/uL (4.20-5.00); RDW 24.1 % (10.5-14.5); WBC 7.6 thou/uL (4.0-11.0)
[2017-02-19 07:11] LABS: POTASSIUM 4.1 mmol/L (3.5-5.1)
[2017-02-19 08:48] VITALS: BP 176/88
[2017-02-19 12:50] VITALS: BP 156/79
[2017-02-19 16:12] VITALS: BP 152/96
[2017-02-19 19:55] VITALS: BP 168/83
[2017-02-20] VITALS (7 sets, daily range): BP systolic 136–168; BP diastolic 62–101
[2017-02-20 07:12] LABS: HEMATOCRIT 32.9 % (37.0-47.0); HEMOGLOBIN 10.1 gm/dL (12.0-15.0); MCH 21.4 pg (26.0-34.0); MCHC 30.6 g/dL (28.0-37.0); RBC 4.7 mil/uL (4.20-5.00); RDW 23.7 % (10.5-14.5); WBC 8.1 thou/uL (4.0-11.0)
[2017-02-20 07:32] LABS: CALCIUM 9.2 mg/dL (8.5-10.1); CREATININE 1.3 mg/dL (0.6-1.0)
[2017-02-21 04:35] VITALS: BP 164/97
[2017-02-21 05:07] LABS: HEMATOCRIT 33.4 % (37.0-47.0); HEMOGLOBIN 10.2 gm/dL (12.0-15.0); MCH 21.4 pg (26.0-34.0); MCHC 30.6 g/dL (28.0-37.0); MCV 69.9 fL (80.0-100.0); RBC 4.78 mil/uL (4.20-5.00); RDW 24.4 % (10.5-14.5); WBC 9.4 thou/uL (4.0-11.0)
[2017-02-21 05:13] LABS: CALCIUM 8.8 mg/dL (8.5-10.1); CREATININE 1.4 mg/dL (0.6-1.0); POTASSIUM 3.8 mmol/L (3.5-5.1)
[2017-02-21 05:18] LABS: INR 1.6
[2017-02-21 09:10] VITALS: BP 175/118
[2017-02-21 12:10] VITALS: BP 175/96
[2017-02-21 16:23] VITALS: BP 165/117
[2017-02-21 19:53] VITALS: BP 176/105
[2017-02-21 23:17] VITALS: BP 141/81
[2017-02-22 06:05] VITALS: BP 179/94
[2017-02-22 06:21] LABS: HEMATOCRIT 34.2 % (37.0-47.0); HEMOGLOBIN 10.6 gm/dL (12.0-15.0); MCH 21.6 pg (26.0-34.0); MCHC 31.1 g/dL (28.0-37.0); MCV 69.6 fL (80.0-100.0); RBC 4.91 mil/uL (4.20-5.00); RDW 24.4 % (10.5-14.5); WBC 9.8 thou/uL (4.0-11.0)
[2017-02-22 06:31] LABS: ALBUMIN 2.9 g/dL (3.4-5.0); CALCIUM 8.8 mg/dL (8.5-10.1); CREATININE 1.5 mg/dL (0.6-1.0); PHOSPHORUS 4.2 mg/dL (2.5-4.9); POTASSIUM 3.6 mmol/L (3.5-5.1)
[2017-02-22 08:00] VITALS: BP 169/101
[2017-02-22 12:00] VITALS: BP 158/105
[2017-02-22 16:00] VITALS: BP 140/86
[2017-02-22 21:01] VITALS: BP 134/71
[2017-02-23 03:22] VITALS: BP 111/92
[2017-02-23 05:36] LABS: HEMATOCRIT 30.9 % (37.0-47.0); HEMOGLOBIN 9.8 gm/dL (12.0-15.0); MCH 21.8 pg (26.0-34.0); MCHC 31.6 g/dL (28.0-37.0); MCV 68.9 fL (80.0-100.0); RBC 4.49 mil/uL (4.20-5.00); RDW 24.6 % (10.5-14.5); WBC 6.7 thou/uL (4.0-11.0)
[2017-02-23 05:56] LABS: ALBUMIN 2.5 g/dL (3.4-5.0); CREATININE 1.5 mg/dL (0.6-1.0); POTASSIUM 3.6 mmol/L (3.5-5.1); TOTAL BILIRUBIN 0.6 mg/dL (<0.1-1.0); TOTAL PROTEIN 5.9 g/dL (6.4-8.2)
[2017-02-23 08:12] VITALS: BP 118/70
[2017-02-23 12:14] VITALS: BP 112/55
[2017-02-23] MEDS ORDERED: PACERONE 200 M200 MG PO (12:18)
[2017-02-23] MEDS ORDERED: LOPRESSOR25 PO (12:24)
[2017-02-23] MEDS ORDERED: PULMICORT0.25 MG/3 INH (12:25)
[2017-02-23] MEDS ORDERED: PREDNISONE 10 M10 MG PO (12:26)
[2017-02-23] MEDS ORDERED: ASPIR 8181 MG PER TUBE (15:58)
== END 2017-02-23 17:17 | DRG 871 ==
LOC: ER 09:56 → 4S 13:46 → EROBS 13:46 → 4S 14:43 → 2N 02-17 13:50
PROVIDERS: Emergency Medicine; Family Medicine; Hospitalist; Internal Medicine Cardiovascular Disease
PROC: 5A09357 Assistance with Respiratory Ventilation, Less than 24 Consecutive Hours, Continuous Positive Airway Pressure (ICD-10-PCS; principal; 2017-02-14)
DX: A41.9 Sepsis, unspecified organism (principal); G93.41 Metabolic encephalopathy; I50.23 Acute on chronic systolic (congestive) heart failure; N39.0 Urinary tract infection, site not specified; E87.0 Hyperosmolality and hypernatremia; I48.92 Unspecified atrial flutter; N17.9 Acute kidney failure, unspecified; J40 Bronchitis, not specified as acute or chronic; Z66 Do not resuscitate; F03.90 Unspecified dementia, unspecified severity, without behavioral disturbance, psychotic disturbance, mood disturbance, and anxiety; E78.5 Hyperlipidemia, unspecified; I48.0 Paroxysmal atrial fibrillation; I35.0 Nonrheumatic aortic (valve) stenosis; E86.0 Dehydration; R13.10 Dysphagia, unspecified; Z51.5 Encounter for palliative care; I11.0 Hypertensive heart disease with heart failure; Z79.899 Other long term (current) drug therapy; Z88.8 Allergy status to other drugs, medicaments and biological substances; Z88.5 Allergy status to narcotic agent; Z91.041 Radiographic dye allergy status; Z88.2 Allergy status to sulfonamides; Z86.73 Personal history of transient ischemic attack (TIA), and cerebral infarction without residual deficits
CPT/HCPCS: 10081; 10100; 27001